=== PATIENT | male | born 1980 | race Caucasian/White ===

== ENCOUNTER 2024-06-19 06:16 | Observation (INO) ==
--- NOTE | 2024-05-21 09:31 | PAT Medication Instructions ---
Medication Instructions Date of Service May 21, 2024 Home Medications clonazepam 0.5 mg tablet 0.5 mg PO BID gabapentin 400 mg capsule 400 mg PO TID losartan 50 mg tablet 50 mg PO QPM metformin 1,000 mg tablet 1,000 mg PO BID rosuvastatin 20 mg tablet (Crestor) 20 mg PO QAM semaglutide 2 mg/dose (8 mg/3 mL) subcutaneous pen injector (Ozempic) 2 mg subcut WK sertraline 100 mg tablet (Zoloft) 200 mg PO QAM vitamin B12 1,000 mcg-folic acid 400 mcg sublingual tablet 1 tab sublingual QAM STOP 7 days before surgery semaglutide 2 mg/dose (8 mg/3 mL) subcutaneous pen injector (Ozempic) 2 mg subcut WK DO NOT take the morning of surgery metformin 1,000 mg tablet 1,000 mg PO BID vitamin B12 1,000 mcg-folic acid 400 mcg sublingual tablet 1 tab sublingual QAM Take morning of surgery With a small sip of water, OTHERWISE NOTHING TO EAT OR DRINK AFTER MIDNIGHT: clonazepam 0.5 mg tablet 0.5 mg PO BID gabapentin 400 mg capsule 400 mg PO TID rosuvastatin 20 mg tablet (Crestor) 20 mg PO QAM sertraline 100 mg tablet (Zoloft) 200 mg PO QAM Take evening before surgery clonazepam 0.5 mg tablet 0.5 mg PO BID gabapentin 400 mg capsule 400 mg PO TID losartan 50 mg tablet 50 mg PO QPM metformin 1,000 mg tablet 1,000 mg PO BID Other Notes If you have any questions please call us at [phone] or [phone] or [phone] or [phone]
--- NOTE | 2024-05-23 13:04 | Anesthesiology Consultation ---
Date of Service May 23, 2024 Assessment & Plan (1) Encounter for pre-operative examination: Chart Review Chart Review: Acceptable Risk for Surgery (pending surgeon ordered PCP clearance 05/31/24) and Patient seen in Pre Admission Testing - Awaiting PCP clearance 05/31/24 (EMMA Morgan) - Check BSG AM DOS - Ozempic instructions: Patient takes on (Wednesdays). Patient informed at PAT visit to stop 7 days prior to surgery- voiced understanding. Last dose of Ozempic scheduled 06/12/24- will be off Ozempic x 7 days by DOS on 06/19/24 Pt currently scheduled as 23 hours observation. If surgeon decides to change patient to Same Day Joint, patient would be acceptable risk for TKA, pending patient is motivated, has good support and surgeon's office completes [facility] preop requirements. Per PAT appt on 05/23/24, no recent illness/disease exposures, illness related symptoms, or recent illness/disease positive tests. Will leave to surgeon's discretion if preop Covid testing needed Teaching & Discussion Pre-Anesthesia Teaching/Discussion Notes: Instructed NPO after midnight before surgery,except medications with 15 cc of water. Medication instructions provided according to the PAT guidelines. History Surgery Operation Date: 06/19/24 09:00 Proposed Procedures p Left Total Knee Arthroplasty - George Muniz MD Height/Weight Height: 6 ft 8 in Weight: 140.1 kg Allergies Allergy/AdvReac Type Severity Reaction Status Date / Time pollen extracts Allergy Intermediate Itching/Watery Verified 05/16/24 15:09 eyes/Congestion lisinopril Allergy Unknown Family hx- Verified 05/23/24 13:32 see below Medications Home Medications Medication Instructions Recorded Confirmed Last Taken clonazepam 0.5 mg tablet 0.5 mg PO BID 05/16/24 05/16/24 Unknown gabapentin 400 mg capsule 400 mg PO TID 05/16/24 05/16/24 Unknown losartan 50 mg tablet 50 mg PO QPM 05/16/24 05/16/24 Unknown metformin 1,000 mg tablet 1,000 mg PO BID 05/16/24 05/16/24 Unknown rosuvastatin 20 mg tablet (Crestor) 20 mg PO QAM 05/16/24 05/16/24 Unknown semaglutide 2 mg/dose (8 mg/3 mL) 2 mg subcut WK 05/16/24 05/16/24 05/15/24 subcutaneous pen injector (Ozempic) sertraline 100 mg tablet (Zoloft) 200 mg PO QAM 05/16/24 05/16/24 Unknown vitamin B12 1,000 mcg-folic acid 1 tab sublingual QAM 05/16/24 05/16/24 Unknown 400 mcg sublingual tablet Past Medical History Medical History Adverse effect of anesthesia "Has happened once where I woke up very agitated and had to be held down." Bipolar 1 disorder follows psychiatry regularly Depression with anxiety follows psychiatry regularly Diverticular disease No flares x 5 years History of kidney stones 2019 - passed on own HTN (hypertension) stable as per patient Hx of gynecomastia PTSD (post-traumatic stress disorder) follows psychiatry regularly Sleep apnea CPAP Tourettes disorder Twitching/fidgeting - stable Type 2 diabetes mellitus Oral- stable Exercise / Class Metabolic Activity II 4-5 Yardwork/Stairs/Walk up hill (one flight of stairs - no chest pain or SOB ) Past Surgical History Surgical History History of arthroscopy of left knee x2 History of tonsillectomy and adenoidectomy with reduction of uvula Hx of bilateral breast reduction surgery Hx of colonoscopy Hx of cystoscopy Hx of esophagogastroduodenoscopy Hx of foot surgery Left Great Toe 2020 r/t diabetic wound - healed at this time and no current issues - follows with podiatry regularly Hx of sinus surgery Past Anesthesia History No Hx of Anesthesia Complications (with exception to remote hx of combativeness post op- no issues with subsequent issues ) and No Family Hx of Anesthesia Complications History of PONV No Hx of PONV and No Hx of Motion Sickness Social History Smoking Status: Never smoker Do You Dip or Chew Tobacco: No Hx Alcohol Use: No Hx Substance Use: No substance use type: does not use Review of Systems Patient denies chest pain, shortness of breath, dyspnea on exertion, reflux, cough, wheezing, palpitations. No hx of seizures, stroke, CO. No hx of blood clots or blood transfusions Physical Exam Vital Signs VITALS BP 116/76 P 79 TEMP 97.7 SP02 98% RESP 16 Constitutional no acute distress ENMT Mouth: no TMJ clicking Thyromental Distance: > or= 3.5 Finger Breadths (4.0) Mallampati Class: III (large tongue) Neck + short neck, + thick neck and + limited neck extension (significant ) Respiratory normal respiratory effort; no respiratory distress Auscultation: lungs clear to auscultation bilaterally; no wheezes Cardiovascular Rate/Rhythm: regular rate and regular rhythm Heart Sounds: no murmur Vessels: no carotid bruit Musculoskeletal Spine: + pain with cervical ROM Extremities: extremities normal to inspection Psychiatric Orientation: alert Lab Results Anesthesia Preop Results Results Anesthesia Widget: WBC 7.66 K/ul (4.8-10.8) 05/23/24 Hgb 14.3 g/dl (14.0-18.0) 05/23/24 Hct 43.4 % (42.0-52.0) 05/23/24 Plt 177 K/uL (130-400) 05/23/24 Na 138 mmol/L (136-145) 05/23/24 K 4.1 mmol/L (3.5-5.1) 05/23/24 Cl 102 mmol/L (98-107) 05/23/24 CO2 31 mmol/L (21-32) 05/23/24 BUN 23 mg/dl (6-23) 05/23/24 Creat 1.03 mg/dl (0.6-1.4) 05/23/24 Glucose Level 95 mg/dl (70-99(Fasting)) 05/23/24 PT 11.0 Seconds (9.0-12.0) 05/23/24 PTT 30 Seconds (21-31) 05/23/24 INR 1.0 (0.9-1.1) 05/23/24 HA1c 5.5 % (4.5-5.6) 05/23/24 Urine Color Yellow 05/23/24 Urine Appearance Clear (Clear) 05/23/24 Urine pH 5.5 (4.5-7.5) 05/23/24 Urine Specific [place] 1.016 (1.000-1.030) 05/23/24 Urine Protein 1+ (Negative) H 05/23/24 Urine Glucose (UA) Negative (Negative) 05/23/24 Urine Ketones Negative (Negative) 05/23/24 Urine Blood 1+ (Negative) H 05/23/24 Urine Nitrite Negative (Negative) 05/23/24 Urine Bilirubin Negative (Negative) 05/23/24 Urine Urobilinogen Negative (Negative) 05/23/24 Urine Leukocyte Esterase Negative (Negative) 05/23/24 Urine WBC (Auto) 0-5 /hpf (0-5) 05/23/24 Urine RBC (Auto) 0-2 /hpf (0-2) 05/23/24 Urine Hyaline Casts (Auto) 0-2 /lpf (0-2) 05/23/24 Urine Epithelial Cells (Auto) 0-2 /hpf (0-2) 05/23/24 Urine Bacteria (Auto) None Seen (None Seen) 05/23/24 Blood Type A Positive 05/23/24 Antibody Screen NEGATIVE 05/23/24 Testing Electrocardiogram Date: 05/13/24 Findings: + NSR @ (76bpm) Normal EKG per cardio Chest X-Ray Date: 05/23/24 FINDINGS: There is mild elevation of the right hemidiaphragm. Lungs are clear. There is no pneumothorax or pleural effusion. Cardiac size is normal. Mediastinal contours are normal. There is no evidence for pulmonary edema. IMPRESSION: No acute cardiopulmonary findings.
--- NOTE | 2024-06-19 05:55 | History & Physical Bridge Note ---
Date of Service June 19, 2024 History & Physical Bridge Note I have examined the patient, reviewed the History & Physical and in the interval since the performance of the History & Physical I have noted the following changes of clinical significance: no changes noted
[2024-06-19] MEDS ORDERED: BUPIVACAINE 0.5 % 5 MG/1 ML PF 10ML VIAL ONE (06:27)
[2024-06-19] MEDS ORDERED: ROPIVACAINE 0.5% 5 MG/ML 30 ML VIAL ONE (06:27)
--- NOTE | 2024-06-19 06:27 | History & Physical Bridge Note ---
Date of Service June 19, 2024 History & Physical Bridge Note I have examined the patient, reviewed the History & Physical and in the interval since the performance of the History & Physical I have noted the following changes of clinical significance:consent and site verified. no changes noted
[2024-06-19] MEDS ORDERED: ePHEDrine sulfate 50 MG/ML AMP ONE (07:33)
[2024-06-19] MEDS ORDERED: fentaNYL citrate PF 100 MCG/2 ML VIAL ONE ×2 (07:33→10:47)
[2024-06-19] MEDS ORDERED: LIDOCAINE 2% 2 ML VIAL/AMP(20MG/ML) INFIL ONE (07:33)
[2024-06-19] MEDS ORDERED: MIDAZOLAM HCL 1 MG/ML 2ML VIAL ONE (07:33)
[2024-06-19] MEDS ORDERED: ONDANSETRON INJ 2 MG/ML 2 ML VIAL ONE (07:33)
[2024-06-19] MEDS ORDERED: PROPOFOL IV EMULSION 10 MG/ML 20 ML VIAL IV ONE ×3 (07:33→10:07)
[2024-06-19] MEDS ORDERED: DEXAMETHASONE SOD INJ 4 MG/ML VIAL ONE (07:33)
[2024-06-19] MEDS ORDERED: PHENYLEPHRINE 100MCG/ML 5ML SYR ONE ×2 (07:33→11:10)
[2024-06-19] MEDS: SODIUM CHLORIDE 0.9% 1,000 ML IV SCH (07:45)
[2024-06-19] MEDS: TRANEXAMIC ACID 1,000 MG **IV Pre-op IV SCH (09:02)
[2024-06-19] MEDS: ceFAZolin 3000MG 3,000 MG/72.5 ML BAG IV SCH (09:20)
[2024-06-19] MEDS ORDERED: ATROPINE SULFATE 0.1 MG/ML 10ML SYR IV PRN (09:50)
[2024-06-19] MEDS ORDERED: ONDANSETRON INJ 2 MG/ML 2 ML VIAL IV PRN ×2 (09:50→14:21)
[2024-06-19] MEDS ORDERED: ePHEDrine sulfate 50 MG/ML AMP IV PRN (09:50)
[2024-06-19] MEDS: ROPIVACAINE 0.5% HCL/PF 246 MG, Ketorolac (*for OR use only*) 30 MG, EPINEPHrine 30MG/3... INFIL SCH (10:09)
[2024-06-19] MEDS: ORTHO JOINT ANESTHETIC ONE (10:09)
[2024-06-19] MEDS: TRANEXAMIC ACID 1,000 MG **IV Intra-op IV SCH (10:39)
--- NOTE | 2024-06-19 11:09 | Post Operative Brief Note ---
Immediate Post Op Note Date of Surgery June 19, 2024 Pre & Post Diagnosis Operation Date: 06/19/24 08:50 Pre-Op Diagnosis: Left Knee Degenerative Joint Disease Post-Op Diagnosis: Left Knee Degenerative Joint Disease I identified the patient and participated in the time-out.: Yes Procedure Operation Date: 06/19/24 08:50 Actual Procedures p Left cemented total Knee Arthroplasty(Left) - George Muniz MD Surgeon George Muniz MD Science Tutor Nathan/Yessica Estimated Blood Loss 50 Findings Consistent with Post-Op Diagnosis Severe patellofemoral and lateral compartment disease AVN of the condyle grossly valgus deformity Fluids See anesthesia report Complications None
--- NOTE | 2024-06-19 11:15 | Operative Report ---
Post Operative Report Pre & Post Diagnosis Operation Date: 06/19/24 08:50 Pre-Op Diagnosis: Left Knee Degenerative Joint Disease Post-Op Diagnosis: Left Knee Degenerative Joint Disease I identified the patient and participated in the time-out.: Yes Procedure Operation Date: 06/19/24 08:50 Actual Procedures p Left cemented total Knee Arthroplasty(Left) - George Muniz MD Surgeon George Muniz MD Director Financial Systems Nathan/Yessica Estimated Blood Loss 50 Findings Consistent with Post-Op Diagnosis Severe lateral and patellofemoral disease AVN segment of the distal lateral femoral condyle valgus valgus deformity a loculated separate posterior medial Ortega's cyst aspirated Fluids See anesthesia report Specimens Bone pathology Drains None Complications None Indications Severe pain failed conservative management x-rays with marked valgus disease and patellofemoral disease Description of Procedure After the patient was appropriate notified site verified consent verified antibiotics confirmed to be given the left lower extremity was prepped and draped in the usual routine fashion. Surgical timeout again was performed. Tourniquet was then inflated to 275 mmHg after exsanguination limb with a rubber band for total 65 minutes. Midline incision was utilized patient was quite thin careful flaps were raised parapatellar throughout any performed extensive synovitis was present this was excised. The patella was incarcerated it was released internally and then was able to be everted the knee was then flexed marginal osteophytes were excised around the whole femur and the intercondylar notch the medial side cartilage was relatively healthy lateral side was completely grade 4 with marked change in deformity patellofemoral joint was the same with marked degeneration. Distal femur was then resected 12 mm proximal tibia 4 mm the extension gap was excellent. Femur was sized to a size 9 cutting block applied the anterior posterior condylar and chamfer cuts were then made. This cut through the avascular segment which was intact with no significant loose pieces. Flexion gap was then checked it was excellent. The posterior capsule was then injected with Ortho mix the box cut was then made a size 9 fit well. The tibia was then subluxated and the size 10 tray fit well it was then pinned into place and appropriate broaching and reaming carried out. Trial reduction with a 8-10 was excellent 10 looks a little better with respect to midrange stability. The patella tracked well. Patella was then resected leaving roughly 20 mm of is quite thick. 41 spacer was then seated and tracked well. Ortho mix was then injected all about the knee. The trial elements were then removed the wound was irrigated with Pulsavac and soaked in Betadine for 2 minutes. Permanents were then cemented in position tibia femur patella in that order at 12 minutes the tourniquet was deflated minor bleeding points controlled electrocautery. He did receive an extra dose of TXA prior to that. At 14 minutes the spacer was removed the knee was flexed there was no cement that required removal everything looked excellent it was irrigated 1 final time with the Pulsavac Betadine and then the permanent liner seated the knee reduced and closed at 40 degrees of flexion with #2 Vicryl 2-0 Vicryl and standstill clips appropriate dressing applied the patient transferred recovery in satisfactory addition he tolerated the procedure well. Summary of implants size 9 left femur posterior cruciate substituting size 10 rotating tibial tray size 41 patella and 9 x 10 mm posterior cruciate substituting insert. Bone pathology pending. DVT PE PE prophylaxis start tomorrow. Family contacted. Mother. I attest to the content of the Intraoperative Record and any orders documented therein. Any exceptions are noted below.
--- NOTE | 2024-06-19 11:15 | Orthopedic Progress Note ---
Date of Service June 19, 2024 Orthopedic Progress Note Patient underwent left total knee replacement did well is no issues. Vital signs are stable he is afebrile denies chest pain shortness of breath fever chills nausea or headache. Family contacted. Assessment doing well post knee replacement x-ray pending. Continue care pathway.
--- NOTE | 2024-06-19 11:17 | Discharge Summary ---
Date of Service June 20, 2024 Admission HPI Per Admitting Provider Chronic left knee pain with x-rays revealing end-stage disease with valgus deformity Principal Diagnosis Osteoarthritis with valgus deformity left knee Discharge Data Allergies Allergy/AdvReac Type Severity Reaction Status Date / Time pollen extracts Allergy Intermediate Itching/Watery Verified 06/19/24 06:41 eyes/Congestion lisinopril Allergy Unknown Family hx- Verified 06/19/24 06:41 see below Vaccinations None Consultations None Procedures Performed Operation Date: 06/19/24 08:50 Actual Procedures p Left Total Knee Arthroplasty(Left) - George Muniz MD Ordered Studies 06/19/24 05:00 US - OR guided needle placemen Routine Hospital Course (1) Status post left knee replacement: Care pathway for total knee replacement Total Time Total Time Spent Total Time Spent (In Minutes): 5 minutes Discharge Plan Discharge Items Patient Disposition: Home - Home Health Services Reason For Visit: Osteoarthritis Knee Left Discharge Diagnosis: Status post left total knee replacement cemented Activity: Per Instructions section Weightbearing: Left weightbearing Non-emergency contact: Surgeon Call non-emergency contact if: you have any medication questions, your symptoms worsen, your pain is not controlled, your temperature is above 101, your wound has increased redness and your wound has increased drainage Follow-up/Referrals: Eric Marion PA-C [Physician Manager Dialysis] - 07/04/24 4:00 pm Mago Valladares DO [Primary Care Provider] - Diet: Regular and Carb Count or DM1 Addtl Attending Provider Instructions: New Medicine: * You will likely be taking one or more of these medications: 1. Percocet - Take, as directed, when you need it, every four to six hours to control your pain. 2. Iron Sulfate - Take 1x each day for the month after surgery to help you replace the blood lost during surgery. 3. Eliquis - Thins your blood to lessen the chance of forming a blood clot * The most common side effects of pain medicine and iron are nausea and constipation. If nausea or constipation is too much of a problem or if you have any questions about your new medicines or doses, call [facility] at . We will try to help you manage these issues. "VERY IMPORTANT TO READ AND REVIEW" Blood Clots and Blood Thinning Medicine: * You are given Eliquis during the immediate post-operative period to lessen the risk of blood clots forming in your legs and/or lungs. It is usually given for 4 weeks after surgery. Pain: * The immediate post-operative period after knee replacement surgery is often quite painful. * You are given a prescription for pain medicine. You should take it, as directed, when you need it, especially before physical therapy and before going to bed. Pain that interferes with sleep is very common and can last several months. * You will likely need pain medicine for the first four to six weeks. It will not stop all of the pain. The pain will lessen and as you feel better, you may change to milder pain medicine such as Tylenol. * The most common side effects of pain medicine are nausea and constipation, so don't take more than you need. Physical Therapy: * You will have physical therapy two or three times each week for four to six weeks after your surgery in order to regain your knee range of motion and to retrain your knee to work properly. * It is just as important to make sure you are getting your knee perfectly straight as it is to regain your knee bend. * Taking a pain pill an hour before therapy can help you have a more productive and comfortable therapy session if needed. Home Exercise: * You were shown a series of exercises (heel props, heel slides, etc.) in the hospital. Do these exercises three to four times each day including the exercises you were shown in physical therapy. Walking: * Get up and walk several times each day. For the first four weeks, try not to stand or walk for more than one hour at a time. If you do stand or walk for more than one hour, you will not hurt anything, but your knee and leg will likely swell. * As you feel comfortable, you may change from the walker or crutches to a cane and then to independent walking. SELF CARE INSTRUCTIONS AFTER TOTAL KNEE REPLACEMENT A. You may need to continue a physical therapy program after discharge from the hospital. There are several options available to you. Your doctor will assist you in selecting the best one for you. 1. An out-patient facility 2 to 3 times a week for therapy or home therapy. 2. Continue working on all exercises taught to you in the hospital. Your goals should be to increase bending of your knee to 90 degrees and beyond and to fully straighten your knee. B. You may progress at your own pace from walking with a walker or crutches to a cane; then to no assistive devices. C. Make walking a part of your daily routine. Be up as much as comfortable with rest periods throughout the day. Rest with leg elevation is very import ant. Use the ice wrap frequently for the first 3-4 weeks. D. There are no restrictions on activities. You may ride in a car, shop, participate in tool maintenance worker and all social activities. E. Wear the long elastic stockings (TONY hose) 20 hours a day for six weeks after surgery. They can be removed several times a day for laundering and for a shower. F. Do not place a pillow behind your knee when resting. A pillow at your ankle is okay. G. You may return to previous diet. VERY IMPORTANT TO READ AND REVIEW A. Take Eliquis (blood thinning medication) as directed by your doctor. B. There are a few signs you need to watch for after you are home. Call [facility] if you notice any of the followin. Increased severe knee pain. Some pain is expected especially when you exercise. 2. Increased swelling in your leg or knee; pain or swelling of the calf muscle in either lower leg. 3. Any fluid drainage from the incision. 4. Shortness of breath or chest pain. C. Please call [facility] at if you have any concerns or questions about your operation or recovery. The doctor or his nurse will return your call promptly. D. You must take antibiotics before dental work, bladder, bowel or other surgery. Call the office to obtain a prescription at least 2 days prior to your appointment. * CALL IF INCREASED PAIN, REDNESS, DRAINAGE OR FEVER GREATER THAT 101. * Sutures should be removed 12-14 days after surgery unless you are on chronic steroids, then it will be 14-18 days after surgery. Call your doctor if: * Temperature above 101 degrees F. * Pain not relieved by pain medicine ordered. * Increased drainage or redness from incision. * Notify your doctor with any questions or concerns. MEDICATIONS: * Please take your prescriptions as instructed at your pre-op appointment and/or see medication discharge instructions listed above. * If concerns develop, call your physician's office at . SPECIAL CARE INSTRUCTIONS: * Ice/Elevate as instructed. * Keep dressing clean, dry, intact. * Your surgical extremity may be discolored due to prepping agents used on the skin. A bluish-green tint is a normal variant and should not cause alarm. Call your doctor at [phone] if: * Temperature above 101 degrees * Pain not relieved by pain medicine ordered * There is increased drainage or redness from any incision * You have any unanswered questions, problems or concerns. FOLLOW UP VISIT: * If not already scheduled, please call the office at to schedule a follow-up appointment. Use your knee immobilizer when out of bed and Monday. It can be discontinued entirely on Monday morning. Use your walker for ambulation Start your Eliquis evening with dinner. Take it 2x day x 4 weeks to prevent blood clots Leave the leg dressings in place through the weekend. They can be changed on Monday if needed for soiling Call the offce with any other concerns follow up in the office in 2 weeks as scheduled for staple removal Stand-Alone Forms: My [facility], Smoking Cessation Medications and DC Order Prescriptions: No Action losartan 50 mg Tablet 50 mg PO QPM clonazepam 0.5 mg Tablet 0.5 mg PO BID gabapentin 400 mg Capsule 400 mg PO TID sertraline [Zoloft] 100 mg Tablet 200 mg PO QAM metformin 1,000 mg Tablet 1,000 mg PO BID rosuvastatin [Crestor] 20 mg Tablet 20 mg PO QAM vitamin [id number] acid 1,000-400 mcg Tablet, Sublingual 1 tab SUBLINGUAL QAM Ozempic 2 mg/dose (8 mg/3 mL) Pen Injector 2 mg SUBCUT WK Rx Instructions: Wednesdays Admission Data Admit Date/Time: 06/19/24 11:27 Attending Provider: George Muniz Admit Provider: George Muniz Primary Care Provider: Mago Valladares
[2024-06-19] MEDS ORDERED: VANCOMYCIN CONSULT ACTIVE PRN (11:18)
--- NOTE | 2024-06-19 11:22 | Operative Report ---
Post Operative Report Pre & Post Diagnosis Operation Date: 06/19/24 08:50 Pre-Op Diagnosis: Left Knee Degenerative Joint Disease Post-Op Diagnosis: Left Knee Degenerative Joint Disease I identified the patient and participated in the time-out.: Yes Procedure Operation Date: 06/19/24 08:50 Actual Procedures p Left Total Knee Arthroplasty(Left) - George Muniz MD Surgeon George Muniz MD Generation Technician Nathan/Cindi Estimated Blood Loss 50 Findings Consistent with Post-Op Diagnosis Specimens Bone pathology Description of Procedure He patient was brought to the operative suite after undergoing spinal anesthesia preoperatively. He underwent sedation. Left lower extremity was prepped and draped in the usual sterile fashion. A surgical timeout was performed. The patient underwent a left total knee arthroplasty, please see Dr. Muniz's operative report for full details. I was present and assisted with patient positioning, limb positioning, soft tissue retraction, hemostasis, bony resection, hardware placement,, wound closure, and postoperative dressing placement. The patient was awakened and taken to the recovery room in stable condition I attest to the content of the Intraoperative Record and any orders documented therein. Any exceptions are noted below.
[2024-06-19] MEDS: fentaNYL citrate PF 100 MCG/2 ML VIAL IV PRN (11:26)
--- NOTE | 2024-06-19 11:36 | XRay Report ---
XR knee LT 1 or 2V routine CLINICAL HISTORY: S/P L TKA TECHNIQUE: 2 views of the left knee were obtained. Comparison: None available at the time of this dictation. FINDINGS: Patient is status post total knee arthroplasty with expected postsurgical changes including soft tiss ue swelling and subcutaneous emphysema. No periarticular lucency or hardware fracture is seen. IMPRESSION: Expected postoperative appearance status post placement of total knee arthroplasty. ACT 112: Negative or not required by law. Electronically signed by: Jamie Fernández M.D. 06/19/2024 11:35 AM
[2024-06-19] MEDS: VANCOMYCIN HCL 2,750 MG in SODIUM CHLORIDE 0.9% 500 ML IV ONE (11:39)
--- NOTE | 2024-06-19 11:53 | Orthopedic Progress Note ---
Date of Service June 19, 2024 Orthopedic Progress Note Postop check in PACU. Patient is awake and alert. Denies chest pain shortness of breath fever chills nausea vomiting or headache. Vital signs are stable he is afebrile. Neurovascular check reveals active dorsi and plantarflexion of toes and ankle in version eversion intact. Can do a straight leg raise good quad set. Sensory exam is baseline. Postop x-rays look excellent. Assessment doing well status post left total knee replacement continue care pathway discharge tomorrow after PT OT. Initiate anticoagulation tomorrow.
[2024-06-19] MEDS ORDERED: oxyCODONE HCL IR 5 MG TAB (IMMEDIATE RELEASE) PO PRN (14:21)
[2024-06-19] MEDS ORDERED: HYDROmorphone INJ 1 MG/ML SYRINGE IV PRN (14:21)
[2024-06-19] MEDS ORDERED: NALOXONE HCL 0.4 MG/1 ML VIAL/CARP IV PRN (14:21)
[2024-06-19] MEDS ORDERED: PHARMACY GLYCEMIC MGMT CONSULT PRN (14:21)
[2024-06-19] MEDS ORDERED: MAGNESIUM HYDROXIDE SUSP 30 ML UDC PO PRN (14:21)
[2024-06-19] MEDS ORDERED: HYDROmorphone INJ 0.5 MG/0.5 ML SYR IV PRN (14:21)
[2024-06-19] MEDS ORDERED: diphenhydrAMINE 50 MG/ML VIAL IV PRN (14:21)
[2024-06-19] MEDS ORDERED: bisacodyL 10 MG SUPP PR PRN (14:21)
[2024-06-19] MEDS ORDERED: TAMSULOSIN HCL 0.4 MG CAP PO PRN (14:21)
[2024-06-19] MEDS: LR 500ML BOLUS, THEN 15ML/HR IV SCH (14:29)
[2024-06-19] MEDS: LR 60ML/HR IV SCH (14:30)
[2024-06-19] MEDS ORDERED: CARBOHYDRATES FOR HYPOGLYCEMIA PO PRN (15:30)
[2024-06-19] MEDS ORDERED: GLUCOSE 10 TAB/TUBE PO PRN (15:30)
[2024-06-19] MEDS ORDERED: GLUCOSE 40% GEL 15 GM TUBE PO PRN (15:30)
[2024-06-19] MEDS ORDERED: DEXTROSE 50% 50 ML SYRINGE IV PRN (15:30)
[2024-06-19] MEDS ORDERED: GLUCAGON FOR INJ 1 MG VIAL SQ PRN (15:30)
--- NOTE | 2024-06-19 15:39 | Anesthesiology Progress Note ---
Date of Service June 19, 2024 Anesthesia Post Procedure Vital Signs Vital Signs: Temp Pulse Pulse Resp BP Pulse Ox O2 Del Method 06/19/24 15:15 36.6 C 85 18 139/82 98 Room Air 06/19/24 14:45 36.7 C 86 18 120/73 96 Room Air 06/19/24 14:20 36.6 C 84 18 132/80 96 Room Air 06/19/24 13:30 80 19 125/86 97 Nasal Cannula 06/19/24 13:00 36.1 C L 77 19 132/80 94 Nasal Cannula 06/19/24 12:45 74 16 121/74 94 Nasal Cannula 06/19/24 12:30 80 18 120/72 94 Nasal Cannula 06/19/24 12:15 80 14 121/78 92 Nasal Cannula 06/19/24 12:00 79 14 112/74 92 Room Air 06/19/24 11:55 36.4 C L 75 13 121/74 92 Room Air 06/19/24 11:45 76 17 116/73 95 Oxymask 06/19/24 11:35 75 15 120/67 99 Oxymask 06/19/24 11:25 77 17 116/72 99 Oxymask 06/19/24 11:19 36.5 C 78 15 115/67 99 Oxymask 06/19/24 06:44 36.6 C 75 20 140/93 99 Room Air O2 Flow Rate 06/19/24 15:15 06/19/24 14:45 06/19/24 14:20 06/19/24 13:30 2 06/19/24 13:00 2 06/19/24 12:45 2 06/19/24 12:30 2 06/19/24 12:15 2 06/19/24 12:00 06/19/24 11:55 06/19/24 11:45 3 06/19/24 11:35 7 06/19/24 11:25 7 06/19/24 11:19 7 06/19/24 06:44 Pain Intensity Left Knee: Pain Intensity: 3 Transfer of Care Handoff Completed per policy Notes Mental Status: alert / awake / arousable and participated in evaluation Patient Amnestic to Procedure: Yes Nausea / Vomiting: adequately controlled Pain: adequately controlled Airway Patency, RR, SpO2: stable & adequate BP & HR: stable & adequate Hydration State: stable & adequate Neuraxial Anesthesia: was administered and sensory block is resolving Anesthetic Complications: no major complications apparent and Pt Satisfied with anesthetic care
[2024-06-19] MEDS ORDERED: Nursing to Pharmacy Communication SCH (16:15)
[2024-06-19] MEDS: ACETAMINOPHEN 500 MG TAB PO SCH (16:18)
[2024-06-19] MEDS: KETOROLAC 30 MG/ML VIAL IV SCH (16:18)
[2024-06-19] MEDS: GABAPENTIN 400 MG CAP PO SCH (16:19)
[2024-06-19] MEDS: ceFAZolin 2000MG 2,000 MG/15 ML SYR IV SCH (16:19)
[2024-06-19] MEDS: INSULIN ASPART PER UNIT CHARGE SC SCH (17:21)
--- NOTE | 2024-06-19 19:23 | Pharmacy Report ---
Pharmacy Glycemic Short Note 2 - Date of Service June 19, 2024 - Glycemic Short BSG Results (Last 24 hours): 06/19/24 06/19/24 06/19/24 06:42 11:29 16:35 POC Glucose 98 103 H 124 H OUTPATIENT ANTIDIABETIC REGIMEN: * Metformin 1000mg bid * Ozempic 2mg wk ASSESSMENT: 43 -years - old was admitted after a surgery ( Left Total Knee Arthroplasty) PLAN FOR INPATIENT GLYCEMIC CONTROL: * Hold outpatient oral diabetes medications * Basal insulin * hold * Bolus insulin * NovoLog per scale ACHS or Q6hrs while NPO * Goal Range: Low 110 mg/dL - High 140 mg/dL * Correction Factor: 30 mg/dL/unit * Nutritional / Prandial insulin per carb ratio of 1 unit per 10 grams CHO consumed
[2024-06-19] MEDS: LOSARTAN POTASSIUM 50 MG TAB PO SCH (20:36)
[2024-06-19] MEDS: clonazePAM 0.5 MG TAB PO SCH (20:37)
[2024-06-19] MEDS: SENNA 8.6 MG TAB PO SCH (20:37)
[2024-06-19] MEDS: DOCUSATE SODIUM 100 MG CAP PO SCH (20:37)
[2024-06-20 03:23] VITALS: TEMP 97.7
[2024-06-20 04:09] LABS: Hematocrit (blood only) 36.7 % (42.0-52.0); Mean Corpuscular Hemoglobin 26.5 pg (25.0-34.0); Mean Corpuscular Hgb Conc 32.7 g/dL (32.0-36.0); Mean Platelet Volume 10.5 fL (9.4-12.4); Platelet Count 164 K/uL (130-400); RDW Standard Deviation 41.1 fL (36.4-46.3); Red Blood Count 4.53 M/uL (4.70-6.10); White Blood Count 12.79 K/ul (4.8-10.8)
[2024-06-20 04:27] LABS: BUN Creatinine Ratio 22.2 (10-20); Calcium 8.7 mg/dl (8.6-10.3); Creatinine Clr Calc Pharmacy 111.7 ml/min
--- NOTE | 2024-06-20 06:52 | Orthopedic Progress Note ---
Date of Service June 20, 2024 Assessment & Plan Admission and Anticipated Discharge Date Admission Date: June 19, 2024 Orthopedic Progress Note Postop day #1 status post left total knee replacement. Patient is very comfortable doing well. He denies any chest pain shortness of breath fever chills nausea vomiting or headache. Vital signs are stable he is afebrile. Neurovascular check from sciatic nerve is normal. Can do straight leg raise and ankle pumps. Calves nontender. A.m. labs are excellent. Assessment doing well status post left total knee replacement. Will plan is to discharge this morning after PT. Dressing change. Initiate anticoagulation today. Follow-up in 2 weeks.
[2024-06-20 07:03] VITALS: BP 114/66; PULSE 80; RESP 16; O2SAT 97
[2024-06-20] MEDS: SERTRALINE HCL 100 MG TABLET PO SCH (08:14)
[2024-06-20] MEDS: MULTIVITAMIN TAB PO SCH (08:14)
[2024-06-20] MEDS: ROSUVASTATIN CALCIUM 20 MG TAB PO SCH (08:14)
[2024-06-20] MEDS: APIXABAN 2.5 MG TAB PO SCH (08:15)
[2024-06-20] MEDS: CYANOCOBALAMIN (B-12) 500 MCG TABLET PO SCH (08:15)
[2024-06-20] MEDS: dexAMETHasone 4 MG TAB PO SCH (08:15)
[2024-06-20] MEDS: FOLIC ACID 400 MCG TAB PO SCH (08:15)
[2024-06-20] MEDS ORDERED: CeleBREX 200 MG CAP PO SCH ×2 (09:00→21:00)
[2024-06-20] MEDS ORDERED: FOLIC ACID 400 MCG TAB PO SCH (09:00)
--- OUTSIDE RECORDS SUMMARY | 2024-06-20 15:06 | External Medical Summary | Summary of Care ---
Author Name Unknown Organization [facility] Address [address] [place] [address] Phone [phone] Care Team Providers Care Customer Service Assistant Name Role Phone Mago Valladares DO Primary Care Provider Reason for Visit * Reason Comments Routine Exam Routine appointment: - Needs new prescription for diabetic shoes. Ran out of Losartan Potassium 2 weeks ago (new order pended) pre-op exam Knee surgery 024. Encounter Details Date Type Department Care Team (Late st Contact Info) Description 05/31/2024 12:00 PM EST Office Visit [facility] [address] [facility] Entrance B, 2nd Floor, [address] [place] [address] Mago Valladares DO [address] [place] [address] Preoperative general physical examination*; Diabetic ulcer of left great toe (HCC); Type 2 diabetes mellitus with hemoglobin A1c goal of less than 7.0% ([facility]); ROME (obstructive sleep apnea); Dyslipidemia, goal LDL below 100; Type 2 diabetes mellitus with foot ulcer, without long-term current use of insulin ([facility]); ROME on CPAP; Malaise and fatigue; Other specified diabetes mellitus with other skin ulcer (CODE) ([facility]); Other fpc (current) drug therapy; Vitamin D deficiency, unspecified Allergies Active Allergy Reactions Criticality Noted Date Comments Dust 03/06/2023 Dust Mite Extract 03/17/2016 Lisinopril 02/12/2019 Angioedema in the father Pollen 08/18/2015 documented as of this encounter (statuses as of 06/11/2024) Medications ZOLOFT 100 MG PO TABS Take by mouth. 2 pills in morning Active FREESTYLE LANCETS MISC TEST twice a day 0 07/29/19 15 Active clonazePAM 0.5 MG Oral Tablet (KlonoPIN) Take 1 Tablet by mouth 2 times a day as needed for Anxiety. Active Triamcinolone Acetonide 0.5 % External Cream Apply topically to affected area 3 times a day . Apply to Active Cyclobenzaprine HCl 10 MG Oral Tablet (Flexeril) Take 1 Tablet by mouth in the morning and 1 Tablet at noon and 1 Tablet before bedtime. Active Abilify 5 MG Oral Tablet Take 1 Tablet by mouth in the morning. Active Diclofenac Sodium 1 % External Gel (Voltaren)Indicati ons:Acute bilateral low back pain without sciatica Apply topically to affected area 2 times a day. Apply 1g to affected area 50 g 3 10/04/19 23 Active FreeStyle Test In Vitro Strip (Glucose Blood)Indications: Type 2 diabetes mellitus with hemoglobin A1c goal of less than 7.0% (HCC) To check blood sugar twice daily DX11.9 180 Strip 3 11/03/19 23 Active Dakins (1/2 strength) 0.25 % External Solution Apply topically to affected area. Apply to affected area once daily Active Insulin Aspart 100 UNIT/ML Subcutaneous Solution Pen-injector (novoLOG)Indicatio ns:Type 2 diabetes mellitus with foot ulcer, without long-term current use of insulin (HCC) Use insulin according to sliding scale 2 units if bs 150-200, 4 units if 201-250, 6 units 251-300, 8 units 301-350, 10 units 351-400, maximum daily dosing of 30 units 1 Each 5 07/07/20 23 Active metFORMIN HCl 1000 MG Oral Tablet (Glucophage)Indica tions:Type 2 diabetes mellitus with hemoglobin A1c goal of less than 7.0% (HCC) Take by mouth 2 times a day with morning and evening meals. One tab twice daily 180 Tablet 2 07/29/19 24 Active B-12-SL 1000 MCG Sublingual Tablet Sublingual (Cyanocobalamin)In dications:Type 2 diabetes mellitus with hemoglobin A1c goal of less than 7.0% (HCC) Place 1,000 mcg under the tongue in the morning. 90 Tablet 3 11/24/19 24 Active Rosuvastatin Calcium 20 MG Oral Tablet (Crestor)Indicatio ns:Dyslipidemia, goal LDL below 100 Take 1 Tablet by mouth in the morning. 90 Tablet 3 11/24/19 24 Active Gabapentin 400 MG Oral Capsule (Neurontin)Indicat ions:Type 2 diabetes mellitus with hemoglobin A1c goal of less than 7.0% (HCC),Primary osteoarthritis of left knee Take 1 Capsule by mouth in the morning and 1 Capsule at noon and 1 Capsule before bedtime. 270 Capsule 1 11/24/19 24 Active Azelastine HCl 0.1 % Nasal Solution (Astelin)Indicatio ns:Chronic rhinitis Administer 1 [place] into nostril in the morning and 1 [place] before bedtime. 30 mL 8 12/05/19 24 Active Ozempic (2 MG/DOSE) 8 MG/3ML Subcutaneous Solution Pen-injector (Semaglutide (2 MG/DOSE))Indicatio ns:Type 2 diabetes mellitus with hemoglobin A1c goal of less than 7.0% (HCC) INJECT 2 MG UNDER THE SKIN ONCE WEEKLY 9 mL 1 03/04/20 24 Active Losartan Potassium 50 MG Oral Tablet (Cozaar)Indication s:Type 2 diabetes mellitus with foot ulcer, without long-term current use of insulin (HCC) Take 1 Tablet by mouth at bedtime. 90 Tablet 3 05/31/20 24 Active Losartan Potassium 50 MG Oral Tablet (Cozaar)Indication s:Type 2 diabetes mellitus with foot ulcer, without long-term current use of insulin (HCC) TAKE 1 TABLET BY MOUTH AT BEDTIME 90 Tablet 3 03/02/20 23 024 Discontin ued(Refil l) documented as of this encounter (statuses as of 06/11/2024) Active Problems Problem Noted Date Diagnosed Date ROME on CPAP 05/31/2024 Osteoarthritis of left knee 02/26/2024 History of atrial fibrillation 11/24/2023 Dyslipidemia, goal LDL below 100 11/24/2023 Type 2 diabetes mellitus wit h foot ulcer, without long-term current use of insulin 11/24/2023 Primary osteoarthritis of left knee 11/24/2023 HTN, goal below 140/90 08/05/2022 Recurrent major depressive disorder 07/26/2022 Viral upper respiratory tract infection 06/08/20 22 ROME (obstructive sleep apnea) 02/22/2022 Diabetic ulcer of right great toe 12/13/2021 Diabetic ulcer of left great toe 11/26/2020 Type 2 diabetes mellitus wit h hemoglobin A1c goal of less than 7.0% 11/26/2020 DM type 2 with diabetic peripheral neuropathy DDD (degenerative disc disease), lumbar 09/05/19 17 Disorder of refraction and accommodation 015 Anxiety state 07/22/2008 Internal derangement of knee 04/11/2007 documented as of this encounter (statuses as of 06/11/2024) Resolved Problems Problem Noted Date Diagnosed Date Resolved Date ADVANCE DIRECTIVE INFORMATION 09/17/2008 05/13/2024 Overview (09/17/2008): Discussed and gave AD brochure. Pt believes that he completed a POA for healthcare in the past (ask his parents) which he may bring to scan to record. RON Gastelum. Major depressive disorder 07/22/2008 Overview (05/02/2017): ICD-10 update of inactive term Examination following surgery 06/14/2007 11/24/2023 documented as of this encounter (statuses as of 06/11/2024) Immunizations Name Administration Dates Next Due COVID-19 mRNA, LNP-s, No Pre serve, 2-Dose Series (Moderna) 09/04/2020,08/07/2020 COVID-19 mRNA, LNP-s, No Pre serve, 2-Dose Series (Pfizer) 03/22/2023 COVID-19, mRNA, LNP-s, PF, B ooster, 100mcg/0.5mg (Moderna) 05/12/2021 Covid-19, Mrna, Lnp-s, Pf, B ivalent, 30 Mcg, IM, 12 yrs and above (Pfizer) 05/02/2022 Hepatitis B Vaccine 06/28/2000,01/26/2000,1999 Hepatitis B, 20+ yrs 06/28/2000,01/26/20,12/28/1999,10/08,04/28/1997,03/18/1997 Meningococcal MCV4P Conjugat e Vaccine (Menactra) 02/09/2000 Meningococcal Polysaccharide Vaccine (Menommune) 02/09/2000 Pneumococcal Conjugate Vacci ne, 20-valent ([id number]) 05/03/2022 Pneumococcal Polysaccharide PPV23 (Pneumovax) 12/12/2018,05/16/2016 Seasonal Influenza Vac., MDV , IM, 0.5 mL (Fluzone) 04/24/2019,04/04/2018,04/03/2018,03/28,03/11/2015,03/05/2014,05/22/2013 ,06/28/2011 Seasonal Influenza Virus Vac cine, Unspecified Formulation 04/19/2023 Seasonal Influenza, QUAD, wi th Preserv, 6 mons & Above, 0.5 mL, IM 05/02/2022 Seasonal Influenza, Quadriva lent, No Preserve, IM 03/30/2020 TDAP (age 10 and older)(Boostrix) 05/16/2016,06/2007 documented as of this encounter Social History Tobacco Use Types Packs/Day Years Used Date Smoking Tobacco: Never Smokeless Tobacco: Never Alcohol Use Standard Drinks/Week Comments No 0 (1 standard drink = 0.6 oz pur e alcohol) PHQ-2 Answer Date Recorded PHQ Adult Total Score 2 05/31/2024 Hunger Vital Sign Answer Date Recorded Within the past 12 months, y ou worried that your food would run out before you got the money to buy more. Never true 05/17/20 24 Within the past 12 months, t he food you bought just didn't last and you didn't have money to get more. Never true 05/17/2024 Childcare Answer Date Recorded Do you feel overwhelmed with taking care of a child, family member or friend? No 05/17/2024 Does your family need help f inding childcare? (Household - for ages 0-17 years) Not on file 05/17/2024 Clothing Answer Date Recorded Have you been unable to get clothing when it was really needed? No 05/17/2024 Is your family able to get c lothes or diapers when needed? (Household - for ages 0-17 years) Not on file 05/17/2024 Personal Safety Answer Date Recorded Do you feel unsafe or have concerns for your saf ety? No 05/17/2024 Do you have concerns for you r family's safety? (Household - for ages 0-17 years) Not on file 05/17/2024 Utilities Answer Date Recorded Do you have trouble paying y our heating, water, or electric bill? No 05/17/2024 Is your family able to pay t he heat, water, or electric bill? (Household - for ages 0-17 years) Not on file 05/17/2024 Does your family have access to good internet? (Household - for ages 0-17 years) Not on file 05/17/2024 Employment Status Answer Date Recorded Are you unemployed or without regular income? No 05/17/2024 Does the household have a [facility] source of income? (Household - for ages 0-17 years) Not on file 05/17/2024 Social Connections Answer Date Recorded How often do you feel lonely or isolated from th ose around you? Rarely 05/17/2024 Financial Resource Strain Answer Date R ecorded Do you have any trouble payi ng for your medications, or do you think you might in the future? No 05/17/2024 Does your family have troubl e paying for medicine? (Household - for ages 0-17 years) Not on file 05/17/2024 Transportation Needs Answer Date Record ed READ ONLY Do you have troubl e getting a ride to medical visits or work? Never True 05/17/2024 Does your family have a hard time getting a ride to doctors visits? (Household - for ages 0-17 years) Not on file 05/17/2024 Has lack of transportation k ept you from medical appointments, meetings, work, or from getting things needed for daily living? Check all that apply. No 05/17/2024 Do you (or your family) have trouble finding or paying for a ride (transportation)? (Household - for ages 0-17 years) Not on file 05/17/2024 Housing Stability Answer Date Recorded Do you currently live in a s helter or have no steady place to sleep at night? No 05/17/2024 READ ONLY Do you think you a re at risk of becoming homeless? No 05/17/2024 Does your family worry about paying for your home or becoming homeless? (Household - for ages 0-17 years) Not on file 1 07/17/2023 Are you homeless or worried that you might be in the future? No 05/17/2024 Are you (or your family) cristiano eless or worried that you might be in the future? (Household - for ages 0-17 years) Not on file Food Insecurity Answer Date Recorded Do you need food for this week? No 05/17/2024 Are you able to get enough f ood for your family? (Household - for ages 0-17 years) Not on file 05/17/2024 Does your family need food t his week? (Household - for ages 0-17 years) Not on file 05/17/2024 Do you always have enough fo od for your family? 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 Not on file Not on file Not on file documented as of this encounter Last Filed Vital Signs Vital Sign Reading Time Taken Comments Blood Pressure 122/80 05/31/2024 11:28 AM EST Pulse 91 05/31/2024 11:28 AM EST Temperature 36.9 C (98.4 F) 05/31/2024 1 1:28 AM EST Respiratory Rate 18 05/31/2024 11:2 8 AM EST Oxygen Saturation 97% 05/31/2024 11: 28 AM EST Inhaled Oxygen Concentration - - Weight 141.6 kg (312 lb 3.2 oz) 024 11:28 AM EST Height 196.9 cm (6' 5.5") 05/31/2024 11 :28 AM EST Body Mass Index 36.55 05/31/2024 11:28 AM EST documented in this encounter Patient Instructions * Patient Instructions* Mago Valladares, DO - 05/31/2024 11:36 AM EST You are low risk for a low risk procedure Okay to proceed as scheduled Please hold Ozempic for 1 week prior to procedure Please hold metformin on morning of procedure Please hold losartan on morning of procedure Hold any [id number] supplements for 10 days prior to procedure Do not take any pjei-jyl-dphuwtt NSAIDs for 7 days prior to procedure Return in 6 months or sooner if needed Dr. Ramirez For fatigue please get blood work Talk to sleep medicine team about narcolepsy or other sleep disorders as well documented in this encounter Progress Notes * Paola Martinez OSA - 06/11/2024 9:34 AM EST Office note and form faxed as requested. * Mago Valladares DO - 05/31/2024 12:00 PM EST Images from the original note were not included. History of Present Illness Geoffrey Haywood is a 43-year-old person who presents today for follow up of chronic medical conditions. Their past medical history includes the following: Today would like to discuss ongoing malaise and fatigue For the past few months has had excessive daytime sleepiness Finds himself falling asleep randomly throughout the day Discussed with Sleep Medicine center at [facility] whom he follows with an they report his CPAP was at a good pressure and oxygenation look good Was not tested for any other parasomnia as her sleeping disorders Denies any fevers chills unintentional weight loss No other new symptoms aside from fatigue No new medications Type 2 diabetes complicated by peripheral neuropathy and diabetic ulcer Maintained on Ozempic 2 mg weekly, metformin, short-acting insulin if needed Last A1c 5.9% well-controlled Maintained on losartan for renal protection Maintained on high-intensity statin History of left foot ulcer for which they are following with Podiatry at [facility] Has required multiple debridements Wearing good orthotics shoes - needs new pair for which paperwork was completed today Will not take Gerry as dad had allergy and he was told by previous doctors to "never take lisinopril" He is tolerating losartan Obesity Weight previously 345 lb He was down over 40 lb and doing well MDD/kathy Maintained on Zoloft, Abilify. Following with psychiatry at [facility] Ava Young ROME Wearing CPAP nightly Acne Following with Dermatology - [facility] Dilia Maintained on isotretinoin May be able to discontinue in the near future Per Care Everywhere there is documentation of patient has a history of AFib with ablation and DC cardioversion in the past Patient denies this Recommended we obtain echocardiogram given risk factors in the past but they have not completed Plan is for left knee replacement with [facility] Dr. Muniz on 06/19/2024. Having ongoing pain in left knee. He does have good metabolic equivalents. No chest pain or shortness of breath. He denies any history of heart attack or heart disease. No history of heart failure. He denies any history of cerebrovascular disease. He does not have any history of chronic kidney disease. He does have diabetes but she was not take any insulin. Has sleep apnea and wears a CPAP. Denies any history of surgical complications. No history of blood clot or uncontrolled bleeding. Does report history of agitation after waking from anesthetic 1 time as a young adult. Physical Exam BP 122/80 | Pulse 91 | Temp 98.4 F (36.9 C) (Infrared ) | Resp 18 | Ht 6' 5.5" (1.969 m) | Wt (!) 312 lb 3.2 oz (141.6 kg) | SpO2 97% | BMI 36.55 kg/m | BSA 2.78 m Physical Exam Physical Exam Vitals reviewed. Constitutional: General: Geoffrey is not in acute distress. Appearance: Geoffrey is obese. Geoffrey is not toxic-appearing. HENT: Head: Normocephalic and atraumatic. Right Ear: External ear normal. Left Ear: External ear normal. Nose: Nose normal. Mouth/Throat: Mouth: Mucous membranes are moist. Eyes: Extraocular Movements: Extraocular movements intact. Conjunctiva/sclera: Conjunctivae normal. Comments: Wears glasses Cardiovascular: Rate and Rhythm: Normal rate and regular rhythm. Pulmonary: Effort: Pulmonary effort is normal. No respiratory distress. Breath sounds: Normal breath sounds. Abdominal: General: Abdomen is flat. Palpations: Abdomen is soft. Tenderness: There is no abdominal tenderness. Musculoskeletal: General: Normal range of motion. Cervical back: Neck supple. Right lower leg: No edema. Left lower leg: No edema. Skin: General: Skin is warm and dry. Comments: Scattered varicose veins bilateral legs Neurological: General: No focal deficit present. Mental Status: Geoffrey is alert and oriented to person, place, and time. Psychiatric: Behavior: Behavior normal. I have reviewed the following results: Hemoglobin A1C and BMP Losartan Potassium 50 MG Oral Tablet (Cozaar) Ozempic (2 MG/DOSE) 8 MG/3ML Subcutaneous Solution Pen-injector (Semaglutide (2 MG/DOSE)) B-12-SL 1000 MCG Sublingual Tablet Sublingual (Cyanocobalamin) Gabapentin 400 MG Oral Capsule (Neurontin) Rosuvastatin Calcium 20 MG Oral Tablet (Crestor) metFORMIN HCl 1000 MG Oral Tablet (Glucophage) Insulin Aspart 100 UNIT/ML Subcutaneous Solution Pen-injector (novoLOG) Dakins (1/2 strength) 0.25 % External Solution FreeStyle Test In Vitro Strip (Glucose Blood) Abilify 5 MG Oral Tablet clonazePAM 0.5 MG Oral Tablet (KlonoPIN) Cyclobenzaprine HCl 10 MG Oral Tablet (Flexeril) FREESTYLE LANCETS MISC ZOLOFT 100 MG PO TABS Azelastine HCl 0.1 % Nasal Solution (Astelin) Diclofenac Sodium 1 % External Gel (Voltaren) Triamcinolone Acetonide 0.5 % External Cream Assessment and Plan Preoperative general physical examination (Primary) Patient had preoperative EKG and labs as well as checks x-ray with Stuart Timmons. We reviewed these He was low risk for a low to moderate risk procedure Okay to proceed without further intervention 1. Cardiovascular Risk Assessment: Does patient have Coronary artery disease? Denies Has patient had a coronary stent inserted in the past year? No The patient's functional status is adequate (equal to 4 METS) yes The patient's Revised cardiac risk index(RCRI) score is 0 RCRI High-risk type of surgery (examples include vascular surgery and any open intraperitoneal or intrathoracic procedures) - no History of ischemic heart disease (history of myocardial infarction or a positive exercise test, current complaint of chest pain considered to be secondary to myocardial ischemia, use of nitrate therapy, or ECG with pathological Q waves; do not count prior coronary revascularization procedure unless one of the other criteria for ischemic heart disease is present) - no History of heart failure - no History of cerebrovascular disease - no Diabetes mellitus requiring treatment with insulin - diabetes yes, not on insulin Preoperative serum creatinine >2.0 mg/dL - no Rate of cardiac , nonfatal myocardial infarction, and nonfatal cardiac arrest according to thenumber of predictors No risk factors - 0.4% (95% CI 0.1-0.8) Rate of myocardial infarction, pulmonary edema, ventricular fibrillation, primary cardiac arrest, and complete heart block No risk factors - 0.5% (95% CI 0.2-1.1) 2. Pulmonary Risk Assessment Patient has no known lung disease aside from sleep apnea for which he wears CPAP nightly patient should be extubated to positive pressure if remains mildly sedated and monitored for CO2 retention 3. Pain control Pain management to be determined by surgical service. Because of probable underlying sleep apnea this patient is a higher risk for respiratory depression with narcotic medications and administration should be closely monitored. 4. Venous Thromboembolism (VTE) Prophylaxis Selection of VTE prophylaxis is at the discretion of the surgeon. If the patient is to receive coumadin, he should receive low molecular weight heparin for VTE prophylaxis until they have reached a therapeutic INR for 48 hours. 5. Adrenal Insufficiency Risk Stratification: Steroid exposure in past year includes: denies Risk of iatrogenic adrenal insufficiency is low: no treatment necessary. If additional corticosteroids are indicated, dosing should be based on surgical stress. 6. Hypertension: Is hypertension controlled? Yes. Is blood pressure > 180/110 No. 7. Diabetes Well-controlled Will hold Ozempic for 1 week prior to procedure on metformin on morning of surgery 9. History of problems with anesthesia: When remote history of agitation when awaking from anesthesia should be prepared to medicate if needed 10. History of surgical complications: Denies 11. Instructions for medications on the morning of surgery: Reviewed holding all supplements for 10days prior to procedure, no [id number] NSAIDs for 1 week prior to procedure, hold metformin and losartan on morning of surgery, Ozempic for 1 week prior to procedure Diabetic ulcer of left great toe (HCC) Type 2 diabetes mellitus with hemoglobin A1c goal of less than 7.0% (HCC) ROME (obstructive sleep apnea) Dyslipidemia, goal LDL below 100 Type 2 diabetes mellitus with foot ulcer, without long-term current use of insulin (HCC) - ALBUMIN / CREATININE RATIO, URINE; Future; Expected date: 05/31/2024 - Losartan Potassium 50 MG Oral Tablet (Cozaar); Take 1 Tablet by mouth at bedtime. - VITAMIN B12; Future; Expected date: 05/31/2024 ROME on CPAP Malaise and fatigue - CBC WITH WBC DIFFERENTIAL; Future; Expected date: 05/31/2024 - TSH WITH FREE T4 IF INDICATED; Future; Expected date: 05/31/2024 - LYME DISEASE ANTIBODY SCREEN WITH REFLEX TO CONFIRMATION; Future; Expected date: 05/31/2024 - BASIC METABOLIC PANEL; Future; Expected date: 05/31/2024 - IRON SCREEN, INCLUDING TIBC; Future; Expected date: 05/31/2024 - FERRITIN; Future; Expected date: 05/31/2024 - VITAMIN B12; Future; Expected date: 05/31/2024 - 25-HYDROXY VITAMIN D; Future; Expected date: 05/31/2024 Other specified diabetes mellitus with other skin ulcer (CODE) (HCC) - FERRITIN; Future; Expected date: 05/31/2024 Other fpc (current) drug therapy - VITAMIN B12; Future; Expected date: 05/31/2024 Vitamin D deficiency, unspecified - 25-HYDROXY VITAMIN D; Future; Expected date: 05/31/2024 Follow Up: Return in about 6 months (around 11/28/2024) for Return with Physician, Return with AP. |For: Return with Physician, Return with AP Wrap-Up Time: I spent a total of 40-54 minutes (exact time 51 mins) on the date of service in preparation, delivery, and documentation of the care provided to patient excluding any time spent in the performance ofseparately billed services. Mago Valladares DO [address], 2nd Floor, [address] [place] [address] * Vee Garcia LPN - 05/31/2024 11:26 AM EST Patient has been identified by name and date of . medication and allergy list reviewed Chief Complaint Patient presents with Routine Exam Routine appointment: - Needs new prescription for diabetic shoes. Guilherme out of Losartan Potassium 2 weeks ago (new order pended) pre-op exam Knee surgery 06/19/2024. Patient has been verbally educated on the need or importance of Diabetic Eye Exam, COVID, Flu Vaccine, and HPV Vaccine and has declined topic(s). Urine albumin/creatinine ratio ordered today. Provider aware. documented in this encounter Miscellaneous Notes * Result Encounter Note - Mago Valladares DO - 06/03/2024 8:03 AM EST Proteinuria improved with losartan documented in this encounter Plan of Treatment Upcoming Encounters Date Type Department Care Team (Late st Contact Info) Description 11/29/2024 2:40 PM EDT Office Visit [facility] [address] [facility] Entrance [address], 2nd Floor, [address] [place] [address] Trini Perales DO [address] [place] [address] Health Maintenance Due Date Last Done Comments Cologuard 09/24/2023 Fecal Occult Blood Test 09/24/2023 Sigmoidoscopy 09/24/2023 HPV (Gardasil) Vaccine (2 - 3-dose SCDM series) 11/24/2023 10/27/2023 Diabetic Eye Exam 05/01/2024 05/01/2023, , 05/01/2023, Additional history exists COVID-19 Vaccine ( season) 2024 04/23/2024, 04/11/2023, 03/22/2023, Additional history exists Diabetic Foot Exam 10/23/2024 10/24/2023, 0 08/04/2022 (Done elsewhere) HbA1c 11/10/2024 05/13/2024, 06/0 12/2023, 11/17/2023, Additional history exists Albumin/Creatinine Ratio 05/31/2025 024, 06/26/2023, 05/05/2023, Additional history exists Depression Monitoring 05/31/2025 05/31/2024 GFR 05/31/2025 05/31/2024, 05/10, 05/13/2024, Additional history exists DTap/Tdap Vaccines (3 - Td or Tdap) 05/16/2026 05/16/2016, 06/20/2007 Colonoscopy 04/18/2028 04/18/2018 Colorectal Cancer Screening 04/18/2028 Lipid Panel 03/13/2029 03/13/2024, 07/0 03/2024, 12/14/2023, Additional history exists MENINGOCOCCAL (MENACTRA/MENVEO) Aged Out 02/09/2000, 02/09/2000 No longer eligibl e based on patient's age to complete this topic Hepatitis B Vaccine Completed 06/28/2000, 06/28/2000, 01/26/2000, Additional history exists Pneumococcal Vaccine: Pediatrics (0 to 5 Years) and At-Risk Patients (6 to 64 Years) Completed 05/03/2022, 12/12/2018, 05/16/2016 Influenza Vaccine (FLU shot) Completed 03/27/2024, 04/19/2023, 04/11/2023, Additional history exists Mammogram Discontinued documented as of this encounter Medical Devices Not on filedocumented as of this encounter Procedures Procedure Name Priority Date/Time Associated Diagnosis Comments ALBUMIN / CREATININE RATIO, URINE Routine 05/31/2024 3:10 PM EST Type 2 diabetes mellitus with foot ulcer, without long-term current use of insulin (HCC) documented in this encounter Results * (ABNORMAL) ALBUMIN / CREATININE RATIO, URINE (05/31/2024 3:10 PM EST) Albumin, Random Urine 21.00 mg/dL 05/31/2024 7:29 PM EST [facility] Creatinine, Random Urine 108 mg/dL 05/31/2024 7:29 PM EST [facility] Albumin / Creatinine Ratio, Urine 194(H) <30 mg/g Creat 05/31/2024 7:29 PM EST [facility] Urine Urine specimen / Unknown Non-blood Collection / Unknown 05/31/2024 3:10 PM EST 05/31/2024 3:10 PM EST Narrative [facility] [place] 05/31/2024 7:29 PM EST Normal: <30 mg/g creatinine High: 30-300 mg/g creatinine Very High: >300 mg/g creatinine Nephrotic: >2200 mg/g creatinine Mago Valladares DO LAB URINE ORDERABLES Fi nal Result Performing Organization Address City/[facility]/ZIP Co de Phone Number LABORATORY [address] [address] * 25-HYDROXY VITAMIN D (05/31/2024 12:11 PM EST) 25-Hydroxy Vitamin D 20 >19 ng/mL 05/31/2024 4:54 PM EST [facility] Blood Venous blood specimen / Unknown Venipuncture / Unknown 05/31/2024 12:11 PM EST 05/31/2024 12:11 PM EST Narrative [facility] - 05/31/2024 4:54 PM EST Deficient: <20 ng/mL Insufficient: 20-29 ng/mL Recommended/Optimum:30-50 ng/mL Vitamin D intoxication is rare. If suspicious of Vitamin D toxicity, evaluation of serum Calcium and PTH is recommended. Mago Valladares DO LAB BLOOD ORDERABLES Fi nal Result Performing Organization Address [facility] Co de Phone Number LABORATORY [address] [address] * VITAMIN B12 (05/31/2024 12:11 PM EST) Vitamin B12 939 232 - 1,245 pg/mL 05/31/2024 4:54 PM EST [facility] Blood Venous blood specimen / Unknown Venipuncture / Unknown 05/31/2024 12:11 PM EST 05/31/2024 12:11 PM EST Mago Valladares DO LAB BLOOD ORDERABLES Fi nal Result Performing Organization Address City/[facility] Co de Phone Number [facility] [address] [place] [address] * FERRITIN (05/31/2024 12:11 PM EST) Ferritin 71 30 - 400 ng/mL 05/31/2024 4:54 PM EST [facility] Comment:The above reference range is based on the legal sex of the patient only. Results should be interpreted together with patient's sex at , gender identity, and clinical context. Blood Venous blood specimen / Unknown Venipuncture / Unknown 05/31/2024 12:11 PM EST 05/31/2024 12:11 PM EST us Mago Valladares DO LAB BLOOD ORDERABLES Fi nal Result Performing Organization Address [facility] Co de Phone Number [facility]ATORY [facility] [address] [place] [address] * IRON SCREEN, INCLUDING TIBC (05/31/2024 12:11 PM EST) Iron 55 45 - 176 ug/dL 05/31/2024 4:18 PM EST LABORATORY C Iron Binding Capacity 269 250 - 425 ug/dL 05/31/2024 4:18 PM EST LABORATORY C Transferrin Saturation Percent 20 15 - 55 % 05/31/2024 4:18 PM EST [facility] Blood Venous blood specimen / Unknown Venipuncture / Unknown 05/31/2024 12:11 PM EST 05/31/2024 12:11 PM EST us Mago Valladares DO LAB BLOOD ORDERABLES Fi nal Result Performing Organization Address [facility] Co de Phone Number [facility] [address] [place] [address] * (ABNORMAL) BASIC METABOLIC PANEL (05/31/2024 12:11 PM EST) BUN 23(H) 6 - 20 mg/dL 05/31/2024 4:18 PM EST LABORATORY C CREATININE 1.2 0.6 - 1.2 mg/dL 05/31/2024 4:18 PM EST [facility] Comment:The above reference range is based on the legal sex of the patient only. Results should be interpreted together with patient's sex at , gender identity, and clinical context. EGFR 80 >=60 mL/min 05/31/2024 4:18 PM EST [facility] Comment:eGFR is calculated b ased on the legal sex of the patient, using the CKD- EPI 2020 equation. SODIUM 138 135 - 146 mmol/L 05/31/2024 4:18 PM EST [facility] POTASSIUM 4.7 3.5 - 5.1 mmol/L 05/31/2024 4:18 PM EST [facility] CHLORIDE 99 98 - 107 mmol/L 05/31/2024 4:18 PM EST [facility] CO2 29 22 - 32 mmol/L 05/31/2024 4:18 PM EST [facility] ANION GAP 10 7 - 15 mmol/L 05/31/2024 4:18 PM EST [facility] GLUCOSE 84 70 - 120 mg/dL 05/31/2024 4:18 PM EST [facility] CALCIUM 10.2 8.4 - 10.2 mg/dL 05/31/2024 4:18 PM EST [facility] Blood Venous blood specimen / Unknown Venipuncture / Unknown 05/31/2024 12:11 PM EST 05/31/2024 12:11 PM EST Mago Valladares DO LAB BLOOD ORDERABLES Fi nal Result [facility] [address] [place] [address] * (ABNORMAL) TSH WITH FREE T4 IF INDICATED (05/31/2024 12:11 PM EST) TSH 4.76(H) 0.27 - 4.20 uIU/mL 05/31/2024 4:54 PM EST LABORATORY [facility] Blood Venous blood specimen / Unknown Venipuncture / Unknown 05/31/2024 12:11 PM EST 05/31/2024 12:11 PM EST Mago Valladares DO LAB BLOOD ORDERABLES Fi nal Result [facility] [address] [place] [address] documented in this encounter Visit Diagnoses Diagnosis Preoperative general physical examination- Primary Other specified pre-operative examination Diabetic ulcer of left great toe (HCC) Type II or unspecified type diabetes mellitus with other specified manifestations, not stated as uncontrolled Type 2 diabetes mellitus with hemoglobin A1c goal of less than 7.0% (HCC) ROME (obstructive sleep apnea) Obstructive sleep apnea (adult) (pediatric) Dyslipidemia, goal LDL below 100 Other and unspecified hyperlipidemia Type 2 diabetes mellitus with foot ulcer, without long-term current use of insulin (HCC) ROME on CPAP Obstructive sleep apnea (adult) (pediatric) Malaise and fatigue Other malaise and fatigue Other specified diabetes mellitus with other skin ulcer (CODE) (HCC) Other rat exterminator (current) drug therapy Vitamin D deficiency, unspecified documented in this encounter Advance Directives * Full Code (Latest Code Status on File) Date Activated Date Inactivated Comments 02/03/2022 12:26 PM 02/03/2022 7:04 PM This order reflects the patients wishes and were consensually agreed upon. * Full Code Date Activated Date Inactivated Comments 06/01/2007 9:34 AM 06/01/2007 4:23 PM Care Teams Customer Service Assistant Relationship Specialty Start Date End Date Mago Valladares DO [address] [place] [id number] PCP - General Internal Medicine 05/01/23 documented as of this encounter
--- OUTSIDE RECORDS SUMMARY | 2024-06-20 15:07 | External Medical Summary | Summary of Care ---
Author Name Unknown Organization [facility] Address [address] [place] [address] Phone [phone] Care Team Providers Care Bottle Hop Name Role Phone Mago Valladares DO Primary Care Provider Reason for Visit * Reason Comments Routine Exam Routine appointment: - Needs new prescription for diabetic shoes. Ran out of Losartan Potassium 2 weeks ago (new order pended) pre-op exam Knee surgery 024. Encounter Details Date Type Department Care Team (Late st Contact Info) Description 05/31/2024 12:00 PM EST Office Visit [facility] [address], [address] [place] [address] Mago Valladares DO [address] [place] [address] Preoperative general physical examination*; Diabetic ulcer of left great toe (HCC); Type 2 diabetes mellitus with hemoglobin A1c goal of less than 7.0% ([facility]); ROME (obstructive sleep apnea); Dyslipidemia, goal LDL below 100; Type 2 diabetes mellitus with foot ulcer, without long-term current use of insulin ([facility]); ROME on CPAP; Malaise and fatigue; Other specified diabetes mellitus with other skin ulcer (CODE) ([facility]); Other fdc (current) drug therapy; Vitamin D deficiency, unspecified [...] Nasal Solution (Astelin)Indicatio ns:Chronic rhinitis Administer 1 [place] into nostril in the morning and 1 [place] before bedtime. 30 mL 8 12/05/19 24 [...] ([place]) 02/09/2000 Pneumococcal Conjugate Vacci ne, 20-valent (Aopyths03) 05/03/2022 Pneumococcal Polysaccharide PPV23 (Pneumovax) 12/12/2018,05/16/2016 Seasonal [...] No 05/17/2024 Does the household have a [facility] source of income? 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 Ramirez For fatigue please get blood work Talk to sleep medicine team about narcolepsy or other sleep disorders as well documented in this encounter Progress Notes * Mago Valladares DO - 05/31/2024 12:00 [...] day Discussed with Sleep Medicine center at [facility] whom he follows with an [...] which they are following with Podiatry at [facility] Has required multiple debridements Wearing [...] on Zoloft, Abilify. Following with psychiatry at [facility] Ava Teague ROME Wearing CPAP nightly Acne Following with Dermatology - [facility] Lema Maintained on isotretinoin May be able to discontinue in the near future Per Care Everywhere there is documentation of patient has a history of AFib with ablation and DC cardioversion in the past Patient denies this Recommended we obtain echocardiogram given risk factors in the past but they have not completed Plan is for left knee replacement with [facility] Dr. Muniz on 06/19/2024. Having ongoing [...] supplements for 10days prior to procedure, no mual-zxa-iiwljmq NSAIDs for 1 week prior to procedure, hold metformin and losartan on morning of surgery, Ozempic for 1 week prior to procedure Diabetic ulcer of left great toe (HCC) Type 2 diabetes mellitus with hemoglobin A1c goal of less than 7.0% ([facility]) ROME (obstructive sleep apnea) Dyslipidemia, goal LDL below 100 Type 2 diabetes mellitus with foot ulcer, without long-term current use of insulin ([facility]) - ALBUMIN / CREATININE RATIO, URINE; Future; [...] - FERRITIN; Future; Expected date: 05/31/2024 Other terminal make up operator (current) drug therapy - VITAMIN B12; Future; [...] performance ofseparately billed services. Mago Valladares DO [address], [address] [place] [address] * Vee Garcia LPN - 05/31/2024 11:26 [...] Description 11/29/2024 2:40 PM EDT Office Visit [facility] [address], [address] [place] [address] Trini Perales DO [address] [place] [address] Health Maintenance Due Date Last Done Comments [...] 21.00 mg/dL 05/31/2024 7:29 PM EST [facility] Creatinine, Random Urine 108 mg/dL 05/31/2024 7:29 PM EST [facility] Albumin / Creatinine Ratio, Urine 194(H) <30 mg/g Creat 05/31/2024 7:29 PM EST [facility] Urine Urine specimen / Unknown Non-blood Collection / Unknown 05/31/2024 3:10 PM EST 05/31/2024 3:10 PM EST Narrative [facility] - 05/31/2024 7:29 PM EST Normal: <30 mg/g creatinine High: 30-300 mg/g creatinine Very High: >300 mg/g creatinine Nephrotic: >2200 mg/g creatinine Mago Valladares DO LAB URINE ORDERABLES Fi nal Result LABORATORY [place] [address] [place] [address] * 25-HYDROXY VITAMIN D (05/31/2024 12:11 PM EST) 25-Hydroxy Vitamin D 20 >19 ng/mL 05/31/2024 4:54 PM EST [facility] Blood Venous blood specimen / Unknown Venipuncture / Unknown 05/31/2024 12:11 PM EST 05/31/2024 12:11 PM EST Narrative [facility] - 05/31/2024 4:54 PM EST Deficient: <20 ng/mL Insufficient: 20-29 ng/mL Recommended/Optimum:30-50 ng/mL Vitamin D intoxication is rare. If suspicious of Vitamin D toxicity, evaluation of serum Calcium and PTH is recommended. Mago Valladares DO LAB BLOOD ORDERABLES Fi nal Result Performing Organization Address [facility] Co de Phone Number LABORATORY [address] [address] * VITAMIN B12 (05/31/2024 12:11 PM EST) Vitamin B12 939 232 - 1,245 pg/mL 05/31/2024 4:54 PM EST [facility] Blood Venous blood specimen / Unknown Venipuncture / Unknown 05/31/2024 12:11 PM EST 05/31/2024 12:11 PM EST Mago Valladares DO LAB BLOOD ORDERABLES Fi nal Result Performing Organization Address City/[facility]/ZIP Co de Phone Number LABORATORY [address] [address] * FERRITIN (05/31/2024 12:11 PM EST) Ferritin 71 30 - 400 ng/mL 05/31/2024 4:54 PM EST [facility] Comment:The above reference range is based on the legal sex of the patient only. Results should be interpreted together with patient's sex at , gender identity, and clinical context. Blood Venous blood specimen / Unknown Venipuncture / Unknown 05/31/2024 12:11 PM EST 05/31/2024 12:11 PM EST Mago Souza Jacquelyn LAB BLOOD ORDERABLES Fi nal Result Performing Organization Address [facility] de Phone Number [facility] [address] [place] [address] * IRON SCREEN, INCLUDING TIBC (05/31/2024 12:11 PM EST) Iron 55 45 - 176 ug/dL 05/31/2024 4:18 PM EST [facility] Iron Binding Capacity 269 250 - 425 ug/dL 05/31/2024 4:18 PM EST [facility] Transferrin Saturation Percent 20 15 - 55 % 05/31/2024 4:18 PM EST [facility] Blood Venous blood specimen / Unknown Venipuncture / Unknown 05/31/2024 12:11 PM EST 05/31/2024 12:11 PM EST Mago Smithtung Valladares LAB BLOOD ORDERABLES Fi nal Result Performing Organization Address [facility] Phone Number [facility] [address] [place] [address] * (ABNORMAL) BASIC METABOLIC PANEL (05/31/2024 12:11 PM EST) BUN 23(H) 6 - 20 mg/dL 05/31/2024 4:18 PM EST LABORATORY C CREATININE 1.2 0.6 - 1.2 mg/dL 05/31/2024 4:18 PM EST [facility] Comment:The above reference range is based on [...] ORDERABLES Fi nal Result Performing Organization Address City/[facility]/ZIP Co de Phone Number [facility] [address] [place] [address] * (ABNORMAL) TSH WITH FREE T4 IF INDICATED (05/31/2024 12:11 PM EST) TSH 4.76(H) 0.27 - 4.20 uIU/mL 05/31/2024 4:54 PM EST [facility] Blood Venous blood specimen / Unknown Venipuncture / Unknown 05/31/2024 12:11 PM EST 05/31/2024 12:11 PM EST Mago Valladares DO LAB BLOOD ORDERABLES Fi nal Result [facility] [address] [place] [address] documented in this encounter Visit Diagnoses Diagnosis [...] with other skin ulcer (CODE) (HCC) Other terminal make up operator (current) drug therapy Vitamin D deficiency, unspecified documented in this encounter Advance Directives * Full Code (Latest Code Status on File) Date Activated Date Inactivated Comments 02/03/2022 12:26 PM 02/03/2022 7:04 PM This order reflects the patients wishes and were consensually agreed upon. * Full Code Date Activated Date Inactivated Comments 06/01/2007 9:34 AM 06/01/2007 4:23 PM Care Teams Bottle Hop Relationship Specialty Start Date End Date Mago Valladares DO [address] [place] [id number] PCP - General Internal Medicine 05/01/23 documented as of this encounter
--- OUTSIDE RECORDS SUMMARY | 2024-06-20 15:07 | External Medical Summary | Summary of Care ---
Author Name Unknown Organization [facility] Address [address] [place] [address] Phone [phone] Care Team Providers Care Sheet Rock Hanger Name Role Phone Mago Valladares DO Primary Care Provider Reason for Visit * Reason Comments Outpatient Testing Encounter Details Date Type Department Care Team (Late st Contact Info) Description 05/31/2024 12:20 PM [facility] Laboratory Laboratory, [place] [address] [place] [address] [facility] [address] [place] [address] Malaise and fatigue; Other specified diabetes mellitus with other skin ulcer (CODE) ([facility]); Type 2 diabetes mellitus with foot ulcer, without long-term current use of insulin ([facility]); Other petroleum terminal plant operator (current) drug therapy; Vitamin D deficiency, unspecified Allergies Active Allergy Reactions Criticality Noted Date Comments Dust 03/06/2023 Dust Mite Extract 03/17/2016 Lisinopril 02/12/2019 Angioedema in the father Pollen 08/18/2015 documented as of this encounter (statuses as of 05/31/2024) Medications ZOLOFT 100 MG PO TABS Take by mouth. 2 pills in morning Active FREESTYLE LANCETS MISC TEST twice a day 0 5 Active clonazePAM 0.5 MG Oral Tablet (KlonoPIN) [...] 1g to affected area 50 g 3 3 Active FreeStyle Test In Vitro Strip (Glucose Blood)Indications: Type 2 diabetes mellitus with hemoglobin A1c goal of less than 7.0% (HCC) To check blood sugar twice daily DX11.9 180 Strip 3 3 Active Dakins (1/2 strength) 0.25 % External [...] dosing of 30 units 1 Each 5 3 Active metFORMIN HCl 1000 MG Oral Tablet (Glucophage)Indica tions:Type 2 diabetes mellitus with hemoglobin A1c goal of less than 7.0% (HCC) Take by mouth 2 times a day with morning and evening meals. One tab twice daily 180 Tablet 2 4 Active B-12-SL 1000 MCG Sublingual Tablet Sublingual (Cyanocobalamin)In dications:Type 2 diabetes mellitus with hemoglobin A1c goal of less than 7.0% (HCC) Place 1,000 mcg under the tongue in the morning. 90 Tablet 3 4 Active Rosuvastatin Calcium 20 MG Oral Tablet (Crestor)Indicatio ns:Dyslipidemia, goal LDL below 100 Take 1 Tablet by mouth in the morning. 90 Tablet 3 4 Active Gabapentin 400 MG Oral Capsule (Neurontin)Indicat ions:Type 2 diabetes mellitus with hemoglobin A1c goal of less than 7.0% (HCC),Primary osteoarthritis of left knee Take 1 Capsule by mouth in the morning and 1 Capsule at noon and 1 Capsule before bedtime. 270 Capsule 1 4 Active Azelastine HCl 0.1 % Nasal Solution (Astelin)Indicatio ns:Chronic rhinitis Administer 1 [place] into nostril in the morning and 1 [place] before bedtime. 30 mL 8 4 Active Ozempic (2 MG/DOSE) 8 MG/3ML Subcutaneous Solution Pen-injector (Semaglutide (2 MG/DOSE))Indicatio ns:Type 2 diabetes mellitus with hemoglobin A1c goal of less than 7.0% ([facility]) INJECT 2 MG UNDER THE SKIN ONCE WEEKLY 9 mL 1 4 Active Losartan Potassium 50 MG Oral Tablet (Cozaar)Indication s:Type 2 diabetes mellitus with foot ulcer, without long-term current use of insulin ([facility]) Take 1 Tablet by mouth at bedtime. 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 Anxiety state 07/22/2008 Internal derangement of knee 04/11/2007 documented as of this encounter (statuses as of 05/31/2024) Resolved Problems Problem Noted Date Diagnosed Date [...] as of this encounter (statuses as of 05/31/2024) Immunizations Name Administration Dates Next Due COVID-19 mRNA, LNP-s, No Pre serve, 2-Dose Series (Moderna) 09/04/2020,08/07/2020 COVID-19 mRNA, LNP-s, No Pre serve, 2-Dose Series (Pfizer) 03/22/2023 COVID-19, mRNA, LNP-s, PF, B ooster, 100mcg/0.5mg (Moderna) 05/12/2021 Covid-19, Mrna, Lnp-s, Pf, B ivalent, 30 Mcg, IM, 12 yrs and above (Pfizer) 05/02/2022 Hepatitis B Vaccine 06/28/2000,01/26/2000,1999 Hepatitis B, 20+ yrs 06/28/2000,01/26/20 00,12/28/1999,10/08,04/28/1997,03/18/1997 Meningococcal MCV4P Conjugat e Vaccine (Menactra) 02/09/2000 Meningococcal Polysaccharide Vaccine (Menommune) 02/09/2000 Pneumococcal Conjugate Vacci ne, 20-valent ([id number]) 05/03/2022 Pneumococcal Polysaccharide PPV23 (Pneumovax) 12/12/2018,05/16/2016 Seasonal [...] No 05/17/2024 Does the household have a re gular source of income? 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 on file Not on file Not on file documented as of this encounter Plan of Treatment Upcoming Encounters Date Type Department Care Team (Late st Contact Info) Description 06/07/2024 8:20 AM EST Office Visit Optometry, [facility] [address] [place] [address] [address] Shoemaker, [address] [facility] [place] [address] 11/29/2024 2:40 PM EDT Office Visit [facility] [address] [facility] Entrance B, 2nd Floor, [address] [place] [address] Trini Perales, [address] [place] [phone] Pending Results Name Type Priority Associated Diagnoses Date /Time CBC WITH WBC DIFFERENTIAL Lab Routine Malaise and fatigue 05/31/2024 12:11 PM EST TSH WITH FREE T4 IF INDICATED Lab Routine Malaise and fatigue 05/31/2024 12:11 PM EST LYME DISEASE ANTIBODY SCREEN WITH REFLEX TO CONFIRMATION Lab Routine Malaise and fatigue 05/31/2024 12:11 PM EST BASIC METABOLIC PANEL Lab Routine Malaise and fatigue 05/31/2024 12:11 PM EST IRON SCREEN, INCLUDING TIBC Lab Routine Malaise and fatigue 05/31/2024 12:11 PM EST FERRITIN Lab Routine Malaise and fatigue Other specified diabetes mellitus with other skin ulcer (CODE) ([facility]) 05/31/2024 12:11 PM EST VITAMIN B12 Lab Routine Type 2 diabetes mellitus with foot ulcer, without long-term current use of insulin ([facility]) Malaise and fatigue Other petroleum terminal plant operator (current) drug therapy 05/31/2024 12:11 PM EST 25-HYDROXY VITAMIN D Lab Routine Malaise and fatigue Vitamin D deficiency, unspecified 05/31/2024 12:11 PM EST CBC Lab Routine Malaise and fatigue 05/31/2024 12:11 PM EST DIFFERENTIAL, AUTOMATED Lab Routine Malaise and fatigue 05/31/2024 12:11 PM EST LYME DISEASE ANTIBODY SCREEN Lab Routine Malaise and fatigue 05/31/2024 12:11 PM EST Health Maintenance Due Date Last Done Comments Cologuard 09/24/2023 Fecal Occult Blood Test 09/24/2023 Sigmoidoscopy 09/24/2023 HPV (Gardasil) Vaccine (2 - 3-dose SCDM series) 11/24/2023 10/27/2023 Diabetic Eye Exam 05/01/2024 05/01/2023, , 05/01/2023, Additional history exists COVID-19 Vaccine ( season) 2024 04/23/2024, 04/11/2023, 03/22/2023, Additional history exists Albumin/Creatinine Ratio 06/26/202406/26/ 023, 05/05/2023, 04/26/2022, Additional history exists Diabetic Foot Exam 10/23/2024 10/24/2023, 0 08/04/2022 (Done elsewhere) HbA1c 11/10/2024 05/13/2024, 06/0 12/2023, 11/17/2023, Additional history exists GFR 05/23/2025 05/23/2024, 11/0 10/2023, 05/13/2024, Additional history exists Depression Monitoring 05/31/2025 05/31/2024 DTap/Tdap Vaccines (3 - Td or Tdap) [...] Not on filedocumented as of this encounter Visit Diagnoses Diagnosis Malaise and fatigue Other malaise and fatigue Other specified diabetes mellitus with other skin ulcer (CODE) (HCC) Type 2 diabetes mellitus with foot ulcer, without long-term current use of insulin (HCC) Other petroleum terminal plant operator (current) drug therapy Vitamin D deficiency, unspecified documented in this encounter Advance Directives * Full Code (Latest Code Status on File) Date Activated Date Inactivated Comments 02/03/2022 12:26 PM 02/03/2022 7:04 PM This order reflects the patients wishes and were consensually agreed upon. * Full Code Date Activated Date Inactivated Comments 06/01/2007 9:34 AM 06/01/2007 4:23 PM Care Teams Sheet Rock Hanger Relationship Specialty Start Date End Date Mago Valladares DO [address] [place] [address] [place] [address] PCP - General Internal Medicine 05/01/23 documented as of this encounter
--- OUTSIDE RECORDS SUMMARY | 2024-06-20 15:07 | External Medical Summary | Continuity of Care Document ---
Author Name Unknown Organization [facility] [address] [id number] Address [address] [place] [phone] Care Team Providers Care Fabric Cutter Name Role Phone Mago Valladares Primary Care Physician [phone] [id number] Date[facility]s): 05/30/24 - 05/30/24 [facility] [address] [facility] [address] [facility] Medicine [address] [address] Encounter Diagnosis Osteoarthritis of left knee(Discharge Diagnosis) - 05/30/24 Discharge Disposition: Home or Self Care Attending Physician: ELISEO Marion, Eric Kumar Referring Physician: MD Cristy, George Rivas Allergies, Adverse Reactions, Alerts Substance Criticality Severity Reaction Reaction Severity Status lisinopril unknown Active Pollen Sneezing Active Medications Abilify 10 mg oral tablet take 1/2 tablet by mouth once daily Start Date: 02/26/24 Status: Ordered azelastine 137 mcg/inh (0.1%) nasal spray instill 1 spray into each nostril every morning and BEFORE BEDTIME Start Date: 02/26/24 Status: Ordered B-12 500 mcg sublingual tablet dissolve 2 tablets under the tongue every morning Start Date: 02/26/24 Status: Ordered clonazePAM 0.5 mg oral tablet take 1 tablet by mouth twice a day Start Date: 02/26/24 Status: Ordered gabapentin 400 mg oral capsule take 1 capsule by mouth three times a day Start Date: 02/26/24 Status: Ordered ISOtretinoin (Eqv-Accutane) 40 mg oral capsule 1 cap, take 3 capsules by mouth once daily Start Date: 02/26/24 Status: Ordered losartan 50 mg oral tablet take 1 tablet by mouth at bedtime Start Date: 02/26/24 Status: Ordered metFORMIN 1000 mg oral tablet take 1 tablet by mouth every morning and evening with meals Start Date: 02/26/24 Status: Ordered minocycline 100 mg oral capsule Start: 03/25/24 1:33:00 PM EDT, 1 tab BID for 6 weeks with food Start Date: 03/25/24 Status: Ordered NovoLOG FlexPen 100 units/mL injectable solution inject subcutaneously PER SLIDING SCALE: 150-200 = 2 UNITS; 201-2... (REFER TO PRESCRIPTION NOTES). Start Date: 02/26/24 Status: Ordered Ozempic (2 mg dose) 8 mg/3 mL subQ pen Start: 02/26/24 9:37:00 AM EDT, 2 mg =, subQ, q7days, Disp# 3 mL Start Date: 02/26/24 Status: Ordered rosuvastatin 20 mg oral tablet take 1 tablet by mouth every morning Start Date: 02/26/24 Status: Ordered sertraline 100 mg oral tablet take 2 tablets by mouth daily Start Date: 02/26/24 Status: Ordered Mental Status 05/30/24 Barriers to Learning one year None evide nt Mandatory Health Literacy Documentation Yes Health Literacy Communication Barriers N ever Primary Language Latvian Problem List Condition Confirmation Course Effective Dates Status H ealth Status Informant Osteoarthritis of left knee Confirmed Active Diagnosis Diagnosis Type Effective Dates Health Status Clinical Service Informant Osteoarthritis of left knee Discharge Diagnosis 05/30/24 Vital Signs Most recent to oldest [Reference Range]: 1 Height 200 cm (05/30/24 2:32 PM) Patient Weight 143.3 kg (05/30/24 2:32 PM) Body Mass Index 35.83 kg/m2 (05/30/24 2:32 PM) Temperature [36.5-37.9 DegC] 36.5 DegC (05/30/24 2:32 PM) Respiratory Rate 30 br/min (05/30/24 2:32 PM) Blood Pressure 130/76mmHg (05/30/24 2:32 PM) Social History Social History Type Response Smoking Status Never smoked cigaret jacqueline Sex Male Sex Representation Male (finding) Pre-OP H & P * ELISEO Marion Cory D: PERFORM, MODIFY, MODIFY Event Display: Pre-OP H & P Authored Date: [id number] PRE-OPERATIVE HISTORY AND PHYSICAL Name: STEFFANY SHELBY Patient Number: [id number] : 1980 Date of Service: 05/30/2024 PRE-OP Diagnosis: Left knee DJD Planned Procedure: Left total knee arthroplasty Chief Complaint: Left knee pain History of Present Illness (including history relevant to procedure): This 43-year-old male presents today for his preoperative history and physical. He is scheduled to undergo a left knee total kneearthroplasty with Dr. Muniz on 06/19/2024. The patient has had an ongoing history of left knee pain for 4 years. It has become worse with time. He has had 2 knee arthroscopies for meniscectomy. He has tried activity modification, physical therapy, viscosupplementation injections, liquid nitrogen injections, and neuroablation, all without lasting relief. He now elects to proceed with totalknee arthroplasty in hopes of improving his pain. Discomfort is worse with weightbearing. It is affecting his ADLs. He denies any numbness or tingling. He states he ambulates with a limp. He has a history of skin lesions as well as a great toe lesion. He states these are under control. Review Of Systems: A total of 10 systems were reviewed and are significant only for below stated conditions. Family history: Noncontributory. Social history: The patient is single. No tobacco use, no EtOH use. He denies any illicit drug use. Past Medical History: Problems: Osteoarthritis of left knee Tourette syndrome Diabetes, insulin-dependent Hypertension Obstructive sleep apnea Use of CPAP Anxiety Depression ADHD bipolar disorder Chronic back pain History of kidney stones Procedure History Procedure Procedure Date Comments Breast reduction Tonsillectomy with adenoidectomy UPPP Left knee arthroscopy/meniscectomy Sinus surgery Left great toe surgery Left knee arthroscopy/meniscectomy [id number] Allergies and Sensitivities: lisinopril(unknown) Pollen(Sneezing) Current Home Meds: (Last Updated 05/30 14:31) ARIPiprazole (Abilify 10 mg oral tablet) take 1/2 tablet by mouth once daily ISOtretinoin (ISOtretinoin (Eqv-Accutane) 40 mg oral capsule) 40 mg take 3 capsules by mouth once daily HAZARDOUS MEDICATION | capsule: green | suspension: green - C [place] 02/25 09:38 azelastine nasal (azelastine 137 mcg/inh (0.1%) nasal spray) instill 1 spray into each nostril every morning and BEFORE BEDTIME clonazePAM (clonazePAM 0.5 mg oral tablet) take 1 tablet by mouth twice a day HAZARDOUS MEDICATION | tablet: green | ODT: green | suspension: green - C [place] 02/25 09:38 cyanocobalamin (B-12 500 mcg sublingual tablet) dissolve 2 tablets under the tongue every morning gabapentin (gabapentin 400 mg oral capsule) take 1 capsule by mouth three times a day insulin aspart (NovoLOG FlexPen 100 units/mL injectable solution) inject subcutaneously PER SLIDINGSCALE: 150-200 = 2 UNITS; 201-2... (REFER TO PRESCRIPTION NOTES). losartan (losartan 50 mg oral tablet) take 1 tablet by mouth at bedtime metFORMIN (metFORMIN 1000 mg oral tablet) take 1 tablet by mouth every morning and evening with meals minocycline (minocycline 100 mg oral capsule) 1 tab BID for 6 weeks with food rosuvastatin (rosuvastatin 20 mg oral tablet) take 1 tablet by mouth every morning semaglutide (Ozempic (2 mg dose) 8 mg/3 mL subQ pen) 2 mg subQ q7days sertraline (sertraline 100 mg oral tablet) take 2 tablets by mouth daily Vitals: Last Updated 05/30/24 14:32 Weights: Last Updated 05/30/24 14:32 Date Temp Pulse BP RR SpO2 FIO2 Date Wt(kg) Wt(lb) 05/30 14:32 36.5 130/76 30 95 05/30 14:32 143.3 315 05/30 14:32 143.3 315 24 Hr Tmax: 36.5 at 05/30 14:32 Initial Wt: 05/30 143.3 kg 315 lb Physical Exam: (relevant to the procedure, including heart and lung evaluation) General: Well-developed, well-nourished, middle-aged male, in no acute distress. Sitting in a chair. Alert and oriented. HEENT: Normocephalic, atraumatic. Eyes PERRLA, EOMI. Nares patent bilaterally without nasal drainage. Oropharynx with moist oral mucosa. Visible uvuloplasty. Fair dentition. Neck: No JVD. Cardiac: RRR. No MGR. Peripheral pulses are 2+. Lungs: Clear to auscultation bilaterally. No crackles, rhonchi, or wheezing. Good air movement. Abdomen: Mildly obese. Bowel sounds present x 4. Soft nontender. No organomegaly. No masses. Extremities: Left knee evaluation reveals no obvious asymmetry or deformity. He has good motion of the knee with full terminal extension. Flexion to greater than 110 degrees. Strength is 5/5 with good quad tone. There is focal discomfort with palpation over the medial joint line. He also has peripatellar discomfort today. Ambulating today with a slightly antalgic gait. No defect in the patellar tendon or quadriceps tendon. Stable collateral ligaments. Neuro: Gross sensation is intact across the left leg by soft touch. Skin: Warm dry with good turgor. Minor erythemic patches present on his skin consistent with dry skin. Extensive tattoos. No intra-articular effusion at the left knee. Studies of Lab Results (relevant to the procedure): Radiographic imaging and MRI imaging previouslyobtained of the left knee shows end-stage DJD of the knee, worst in the lateral compartment. Periarticular osteophytes, subchondral close, and joint space narrowing are all present. ASSESSMENT: Left knee end-stage DJD Plan: Approximately 30 minutes was spent with the patient reviewing operative procedure, postoperative recovery, physical therapy requirements, and medication use. Postoperative prescriptions for Percocet and Eliquis will be sent to his pharmacy upon discharge from the hospital. Anticipate discharge to home with outpatient PT. He states he lives 2 blocks from the therapy department that he would choose to use. PDMP was checked and there are no concerning findings. He is currently asymptomatic of any COVID-19 or influenza symptoms. Prescription was provided for a walker as well as for outpatient PT. He is supposed to see his PCP for medical clearance tomorrow. Preoperative lab work, EKG, andchest x- ray have already been obtained. Follow-up with me at 4 PM on 07/04 for staple removal. This dictation has been completed using [employer] text voice recognition software. Grammatical errors, omissions, insertions, and misspellings may be present due to the limitations of the software. Electronic Signature on File Electronically Reviewed/Signed by: Eric Marion PA-C Author Signature Dt/Tm:05/30/2024 05:32 PM Division of Sports Medicine Electronically Reviewed/Signed by: MD Sundeep Hairigner Signature Dt/Tm: 05/30/2024 05:45 PM Sheet Metal Shop Foreman for Clinical Affairs, [facility] [place] Professor in Orthopaedics Contact Printer Dry Film, [facility] Sports Medicine CDS Patient Care team information Care Team Personnel Name: DO Valladares Laura Nicole Position: Referring Member Role: Primary Care Provider Address: [place] [address] [address]"
--- OUTSIDE RECORDS SUMMARY | 2024-06-20 15:07 | External Medical Summary ---
Author Name Unknown Address Unknown Organization [id number]:[facility] - [address] [place] [address] Laboratory Report Ordering Provider Test Date Status SUSHILORIANA 05/31/2024 15:10:08 Final Normal: <30 mg/g creatinine< br/>High: 30-300 mg/g creatinine
Very High: >300 mg/g creatinine
Nephrotic: >2200 mg/g creatinine Observation Date Value Abnormality Reference (Units ) Status Albumin, Urine 05/31/2024 15:10:08 21.00 (mg/dL) Final Creatinine, Urine 05/31/2024 15:10:08 108 (mg/dL) Final Albumin/Creatinine [Mass Ratio] in Urine 05/31/2024 15:10:08 194 Above high normal <30 (mg/g Creat) Final Performing Location [facility] - [address] [facility] [id number]
--- OUTSIDE RECORDS SUMMARY | 2024-06-20 15:07 | External Medical Summary | Summary of Care ---
Author Name Unknown Organization [facility] Address [address] [place] [address] Phone [phone] Care Team Providers Care Shoe Sprayer Name Role Phone Mago Valladares DO Primary Care Provider Reason for Visit * Reason Comments Routine Exam Routine appointment: - Needs new prescription for diabetic shoes. Ran out of Losartan Potassium 2 weeks ago (new order pended) pre-op exam Knee surgery 024. Encounter Details Date Type Department Care Team (Late st Contact Info) Description 05/31/2024 12:00 PM EST Office Visit [facility] [address], [address] [place] [address] Mago Valladares DO [address] [place] [address] Preoperative general physical examination*; Diabetic ulcer of left great toe (HCC); Type 2 diabetes mellitus with hemoglobin A1c goal of less than 7.0% ([facility]); ROME (obstructive sleep apnea); Dyslipidemia, goal LDL below 100; Type 2 diabetes mellitus with foot ulcer, without long-term current use of insulin ([facility]); ROME on CPAP; Malaise and fatigue; Other specified diabetes mellitus with other skin ulcer (CODE) ([facility]); Other ocean transportation intermediary (current) drug therapy; Vitamin D deficiency, unspecified [...] Nasal Solution (Astelin)Indicatio ns:Chronic rhinitis Administer 1 Mullins into nostril in the morning and 1 Mullins before bedtime. 30 mL 8 12/05/19 24 [...] ([place]) 02/09/2000 Pneumococcal Conjugate Vacci ne, 20-valent ([id number]) 05/03/2022 Pneumococcal Polysaccharide PPV23 (Pneumovax) 12/12/2018,05/16/2016 Seasonal [...] No 05/17/2024 Does the household have a [facility] source of income? 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 Following with psychiatry at [facility] Ava Teague ROME Wearing CPAP nightly Acne [...] Plan is for left knee replacement with [facility] Dr. Muniz on 06/19/2024. Having ongoing [...] supplements for 10days prior to procedure, no eacr-jjl-ubrtqfo NSAIDs for 1 week prior to procedure, hold metformin and losartan on morning of surgery, Ozempic for 1 week prior to procedure Diabetic ulcer of left great toe (HCC) Type 2 diabetes mellitus with hemoglobin A1c goal of less than 7.0% ([facility]) ROME (obstructive sleep apnea) Dyslipidemia, goal LDL below 100 Type 2 diabetes mellitus with foot ulcer, without long-term current use of insulin ([facility]) - ALBUMIN / CREATININE RATIO, URINE; Future; [...] - FERRITIN; Future; Expected date: 05/31/2024 Other ocean transportation intermediary (current) drug therapy - VITAMIN B12; Future; [...] performance ofseparately billed services. Mago Valladares DO [address], [address] [place] [address] * eVe Garcia LPN - 05/31/2024 11:26 AM EST [...] today. Provider aware. documented in this encounter Plan of Treatment Upcoming Encounters Date Type Department Care Team (Late st Contact Info) Description 06/07/2024 8:20 AM EST Office Visit Optometry, [facility] [address] [place] [address] Geoffrey Shoemaker, OD [address] [place] [address] 11/29/2024 2:40 PM EDT Office Visit [facility] [address], [address] [place], [place] [id number] Trini Perales DO [address] [place] [id number] Pending Results Name Type Priority Associated Diagnoses Date /Time ALBUMIN / CREATININE RATIO, URINE Lab Routine Type 2 diabetes mellitus with foot ulcer, without long-term current use of insulin ([facility]) 05/31/2024 3:10 PM EST CBC WITH WBC DIFFERENTIAL Lab Routine Malaise [...] with other skin ulcer (CODE) ([facility]) 05/31/2024 12:11 PM EST VITAMIN B12 Lab Routine Type 2 diabetes mellitus with foot ulcer, without long-term current use of insulin ([facility]) Malaise and fatigue Other ocean transportation intermediary (current) drug therapy 05/31/2024 12:11 PM EST 25-HYDROXY VITAMIN D Lab Routine Malaise and fatigue Vitamin D deficiency, unspecified 05/31/2024 12:11 PM EST Scheduled Orders Name Type Priority Associated Diagnoses Orde r Schedule ALBUMIN / CREATININE RATIO, URINE Lab Routine Type 2 diabetes mellitus with foot ulcer, without long-term current use of insulin (HCC) Expected: 05/31/2024, Expires: 05/31/2025 CBC WITH WBC DIFFERENTIAL Lab Routine Malaise and fatigue Expected: 05/31/2024 (Approximate), Expires: 05/31/2025 TSH WITH FREE T4 IF INDICATED Lab Routine Malaise and fatigue Expected: 05/31/2024 (Approximate), Expires: 05/31/2025 LYME DISEASE ANTIBODY SCREEN WITH REFLEX TO CONFIRMATION Lab Routine Malaise and fatigue Expected: 05/31/2024, Expires: 05/31/2025 BASIC METABOLIC PANEL Lab Routine Malaise and fatigue Expected: 05/31/2024 (Approximate), Expires: 05/31/2025 IRON SCREEN, INCLUDING TIBC Lab Routine Malaise and fatigue Expected: 05/31/2024 (Approximate), Expires: 05/31/2025 FERRITIN Lab Routine Malaise and fatigue Other specified diabetes mellitus with other skin ulcer (CODE) (HCC) Expected: 05/31/2024 (Approximate), Expires: 05/31/2025 VITAMIN B12 Lab Routine Type 2 diabetes mellitus with foot ulcer, without long-term current use of insulin (HCC) Malaise and fatigue Other usp (current) drug therapy Expected: 05/31/2024 (Approximate), Expires: 05/31/2025 25-HYDROXY VITAMIN D Lab Routine Malaise and fatigue Vitamin D deficiency, unspecified Expected: 05/31/2024 (Approximate), Expires: 05/31/2025 Health Maintenance Due Date Last Done Comments Cologuard 09/24/2023 Fecal Occult Blood Test 09/24/2023 Sigmoidoscopy 09/24/2023 HPV (Gardasil) Vaccine (2 - 3-dose SCDM series) 11/24/2023 10/27/2023 Diabetic Eye Exam 05/01/2024 05/01/2023, , 05/01/2023, Additional history exists COVID-19 Vaccine ( season) 2024 04/23/2024, 04/11/2023, 03/22/2023, Additional history exists Albumin/Creatinine Ratio 06/26/2024 023, 05/05/2023, 04/26/2022, Additional history exists Diabetic Foot Exam 10/23/2024 10/24/2023, 0 08/04/2022 (Done elsewhere) HbA1c 11/10/2024 05/13/2024, 06/0 12/2023, 11/17/2023, Additional history exists GFR 05/23/2025 05/23/2024, 110 10/2023, 05/13/2024, Additional history exists Depression Monitoring 05/31/2025 05/31/2024 DTap/Tdap Vaccines (3 - Td or Tdap) 05/16/2026 05/16/2016, 06/20/2007 Colonoscopy 04/18/2028 04/18/2018 Colorectal Cancer Screening 04/18/2028 Lipid Panel 03/13/2029 03/13/2024, 070 03/2024, 12/14/2023, Additional history exists MENINGOCOCCAL (MENACTRA/MENVEO) [...] as of this encounter Visit Diagnoses Diagnosis Preoperative general [...] with other skin ulcer (CODE) (HCC) Other ocean transportation intermediary (current) drug therapy Vitamin D deficiency, unspecified documented in this encounter Advance Directives * Full Code (Latest Code Status on File) Date Activated Date Inactivated Comments 02/03/2022 12:26 PM 02/03/2022 7:04 PM This order reflects the patients wishes and were consensually agreed upon. * Full Code Date Activated Date Inactivated Comments 06/01/2007 9:34 AM 06/01/2007 4:23 PM Care Teams Shoe Sprayer Relationship Specialty Start Date End Date Mago Valladares DO [address] [place] [address] [place] [id number] PCP - General Internal Medicine 05/01/23 documented as of this encounter
--- OUTSIDE RECORDS SUMMARY | 2024-06-20 15:07 | External Medical Summary ---
Author Name Unknown Address Unknown Organization [id number]:[facility] [place] [address] [place] [address] Laboratory Report Ordering Provider Test Date Status ORIANA LING 05/31/2024 12:11:12 Final Observation Date Value Abnormality Reference (Units ) Status Vitamin B12 05/31/2024 12:11:12 [id number] (pg/mL) Final Performing Location [facility] - [address] [place] [address]
--- OUTSIDE RECORDS SUMMARY | 2024-06-20 15:07 | External Medical Summary | Summary of Care ---
Author Name Unknown Organization [facility] Address [address] [place] [address] Phone [phone] Care Team Providers Care Irrigation Equipment Mechanic Name Role Phone Mago Valladares DO Primary Care Provider Encounter Details Date Type Department Care Team (Late st Contact Info) Description 06/03/2024 Orders Only Outcomes Research Department [address] [place], [place] [id number] Saima Leal CHRA [facility] Other*[id number] Allergies Active Allergy Reactions Criticality Noted Date Comments Dust 03/06/2023 Dust Mite Extract 03/17/2016 Lisinopril 02/12/2019 Angioedema in the father Pollen 08/18/2015 documented as of this encounter (statuses as of 06/03/2024) Medications ZOLOFT 100 MG PO TABS Take [...] Nasal Solution (Astelin)Indicatio ns:Chronic rhinitis Administer 1 [place] into nostril in the morning and 1 [place] before bedtime. 30 mL 8 4 Active Ozempic (2 MG/DOSE) 8 MG/3ML Subcutaneous Solution Pen-injector (Semaglutide (2 MG/DOSE))Indicatio ns:Type 2 diabetes mellitus with hemoglobin A1c goal of less than 7.0% ([facility]) INJECT 2 MG UNDER THE SKIN ONCE WEEKLY 9 mL 1 4 Active Losartan Potassium 50 MG Oral Tablet (Cozaar)Indication s:Type 2 diabetes mellitus with foot ulcer, without long-term current use of insulin ([facility]) Take 1 Tablet by mouth at bedtime. 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 on file Not on file Not on file documented as of this encounter Plan of Treatment Upcoming Encounters Date Type Department Care Team (Late st Contact Info) Description 06/07/2024 8:20 AM EST [facility] [address] [place] [address] [place] Geoffrey Jamel, OD [address] [place] [address] 11/29/2024 2:40 PM EDT Office Visit [facility] [address], [address] [place] [address] Trini Perales DO [address] [place] [phone] Scheduled Orders Name Type Priority Associated Diagnoses Orde r Schedule MYCODE SUBSEQUENT ADULT Lab Routine [facility] Other*[id number] Every 6 Months for 2 Occurrences starting 06/03/2024 until 06/23/2025 Health Maintenance Due Date Last Done Comments [...] 12/2023, 11/17/2023, Additional history exists Albumin/Creatinine Ratio 05/31/202505/31/2 024, 06/26/2023, 05/05/2023, Additional history exists Depression Monitoring 05/31/2025 05/31/2024 GFR 05/31/2025 05/31/2024, 05/10, 05/13/2024, Additional history exists DTap/Tdap Vaccines (3 - Td or Tdap) 05/16/2026 05/16/2016, 06/20/2007 Colonoscopy 04/18/2028 04/18/2018 Colorectal Cancer Screening 04/18/2028 Lipid Panel 03/13/2029 03/13/2024, 03/2024, 12/14/2023, Additional history exists MENINGOCOCCAL (MENACTRA/MENVEO) [...] as of this encounter Visit Diagnoses Diagnosis [facility] Other*[id number] documented in this encounter Advance Directives * Full Code (Latest Code Status on File) Date Activated Date Inactivated Comments 02/03/2022 12:26 PM 02/03/2022 7:04 PM This order reflects the patients wishes and were consensually agreed upon. * Full Code Date Activated Date Inactivated Comments 06/01/2007 9:34 AM 06/01/2007 4:23 PM Care Teams Irrigation Equipment Mechanic Relationship Specialty Start Date End Date Mago Valladares DO [address] [place] [address] [place] [address] PCP - General Internal Medicine 05/01/23 documented as of this encounter
--- OUTSIDE RECORDS SUMMARY | 2024-06-20 15:07 | External Medical Summary | Summary of Care ---
Author Name Unknown Organization [facility] Address [address] [place] [address] Phone [phone] Care Team Providers Care Housemaid Name Role Phone Sushil Valladares DO Primary Care Provider Reason for Visit * Reason Comments Outpatient Testing Encounter Details Date Type Department Care Team (Late st Contact Info) Description 05/31/2024 12:20 PM [facility] Laboratory Laboratory, [place] [address] [place] [address] [facility] [address] [place] [address] Malaise and fatigue; Other specified diabetes mellitus with other skin ulcer (CODE) ([facility]); Type 2 diabetes mellitus with foot ulcer, without long-term current use of insulin ([facility]); Other continuous churn buttermaker (current) drug therapy; Vitamin D deficiency, unspecified [...] Nasal Solution (Astelin)Indicatio ns:Chronic rhinitis Administer 1 [place] into nostril in the morning and 1 [place] before bedtime. 30 mL 8 4 Active Ozempic (2 MG/DOSE) 8 MG/3ML Subcutaneous Solution Pen-injector (Semaglutide (2 MG/DOSE))Indicatio ns:Type 2 diabetes mellitus with hemoglobin A1c goal of less than 7.0% ([facility]) INJECT 2 MG UNDER THE SKIN ONCE WEEKLY 9 mL 1 4 Active Losartan Potassium 50 MG Oral Tablet (Cozaar)Indication s:Type 2 diabetes mellitus with foot ulcer, without long-term current use of insulin ([facility]) Take 1 Tablet by mouth at bedtime. 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 file Not on file Not on file documented as of this encounter Miscellaneous Notes * Addendum Note - Sushil Valladares DO - 06/03/2024 8:03 AM ESTAddended by: SUSHIL VALLADARES on: 06/03/2024 08:03 AM Modules accepted: Orders documented in this encounter Plan of Treatment Upcoming Encounters Date Type Department Care Team (Late st Contact Info) Description 06/07/2024 8:20 AM EST Office Visit Optometry, [facility] [address] [place] [address] Geoffrey Shoemaker [address] [facility] [address] 11/29/2024 2:40 PM EDT Office Visit [facility] [address] [facility] Entrance B, 2nd Floor, [address] [place] [address] Trini Perales DO [address] [place] [address] Scheduled Orders Name Type Priority Associated Diagnoses Orde r Schedule TSH WITH FREE T4 IF INDICATED Lab Routine Malaise and fatigue Expected: 07/03/2024 (Approximate), Expires: 06/03/2025 25-HYDROXY VITAMIN D Lab Routine Vitamin D deficiency, unspecified Expected: 07/03/2024 (Approximate), Expires: 06/03/2025 Health Maintenance Due Date Last Done Comments [...] Procedure Name Priority Date/Time Associated Diagnosis Comments LYME DISEASE ANTIBODY SCREEN Routine 05/31/2024 12:11 PM EST Malaise and fatigue DIFFERENTIAL, AUTOMATED Routine 05/31/2024 12:11 PM EST Malaise and fatigue TSH WITH FREE T4 IF INDICATED Routine 05/31/2024 12:11 PM EST Malaise and fatigue LYME DISEASE ANTIBODY SCREEN WITH REFLEX TO CONFIRMATION Routine 05/31/2024 12:11 PM EST Malaise and fatigue 25-HYDROXY VITAMIN D Routine 05/31/2024 12:11 PM EST Malaise and fatigue Vitamin D deficiency, unspecified BASIC METABOLIC PANEL Routine 05/31/2024 12:11 PM EST Malaise and fatigue IRON SCREEN, INCLUDING TIBC Routine 05/31/2024 12:11 PM EST Malaise and fatigue CBC Routine 05/31/2024 12:11 PM EST Malaise and fatigue CBC Routine 05/31/2024 12:11 PM EST Malaise and fatigue T4, FREE Routine 05/31/2024 12:11 PM EST Malaise and fatigue FERRITIN Routine 05/31/2024 12:11 PM EST Malaise and fatigue Other specified diabetes mellitus with other skin ulcer (CODE) (HCC) VITAMIN B12 Routine 05/31/2024 12:11 PM EST Type 2 diabetes mellitus with foot ulcer, without long-term current use of insulin (HCC) Malaise and fatigue Other detention (current) drug therapy documented in this encounter Results * T4, FREE (05/31/2024 12:11 PM EST) T4, Free 1.0 0.9 - 1.7 ng/dL 05/31/2024 5:36 PM EST [facility] Blood Venous blood specimen / Unknown Venipuncture / Unknown 05/31/2024 12:11 PM EST 05/31/2024 12:11 PM EST [facility] BLOOD ORDERABLES Fi nal Result Performing Organization Address City/[facility]/ZIP Co de Phone Number LABORATORY [facility] [address] [place] [address] * LYME DISEASE ANTIBODY SCREEN (05/31/2024 12:11 PM EST) [facility] Lyme Disease Antibody Screen Negative Negative 06/02/2024 12:12 PM EST [facility] Blood Venous blood specimen / Unknown Venipuncture / Unknown 05/31/2024 12:11 PM EST 05/31/2024 12:11 PM EST [facility] BLOOD ORDERABLES Fi nal Result Performing Organization Address [facility] Co de Phone Number LABORATORY [facility] [address] [place] [address] * (ABNORMAL) DIFFERENTIAL, AUTOMATED (05/31/2024 12:11 PM EST) [facility] WBC 8.48 4.00 - 10.80 K/uL 05/31/2024 4:15 PM EST [facility] Neutrophils % 72.5 40.0 - 75.0 % 05/31/2024 4:15 PM EST [facility] Lymphocytes % 13.7(L) 18.0 - 42.0 % 05/31/2024 4:15 PM EST [facility] Monocytes % 9.3 1.0 - 11.0 % 05/31/2024 4:15 PM EST [facility] Eosinophils % 3.4 0.0 - 6.0 % 05/31/2024 4:15 PM EST [facility] Basophils % 0.5 0.0 - 2.0 % 05/31/2024 4:15 PM EST [facility] Immature Granulocytes % 0.6 0.0 - 2.0 % 05/31/2024 4:15 PM EST [facility] Absolute Neutrophils 6.15 1.80 - 7.70 K/uL 05/31/2024 4:15 PM EST [facility] Absolute Lymphocytes 1.16 1.00 - 4.80 K/ul 05/31/2024 4:15 PM EST [facility] Absolute Monocytes 0.79 0.00 - 1.10 K/uL 05/31/2024 4:15 PM EST [facility] Absolute Eosinophils 0.29 0.00 - 0.70 K/uL 05/31/2024 4:15 PM EST [facility] Absolute Basophils 0.04 0.00 - 0.20 K/uL 05/31/2024 4:15 PM EST [facility] Absolute Immature Granulocytes 0.05 0.00 - 0.20 K/uL 05/31/2024 4:15 PM EST [facility] Blood Venous blood specimen / Unknown Venipuncture / Unknown 05/31/2024 12:11 PM EST 05/31/2024 12:11 PM EST us Sushil Valladarse DO LAB BLOOD ORDERABLES Fi nal Result [facility] [address] [place] [address] * CBC (05/31/2024 12:11 PM EST) WBC 8.48 4.00 - 10.80 K/uL 05/31/2024 4:15 PM EST [facility] RBC 5.54 4.50 - 5.25 M/uL 05/31/2024 4:15 PM EST [facility] HGB 15.0 14.0 - 16.8 g/dL 05/31/2024 4:15 PM EST [facility] HCT 46.3 40.0 - 48.4 % 05/31/2024 4:15 PM EST [facility] MCV 83.6 82.0 - 99.5 fL 05/31/2024 4:15 PM EST [facility] MCH 27.1 27.0 - 34.0 pg 05/31/2024 4:15 PM EST [facility] MCHC 32.4 32.0 - 36.0 g/dL 05/31/2024 4:15 PM EST [facility] RDW 13.7 11.5 - 15.5 % 05/31/2024 4:15 PM EST LABORATORY [facility] PLT 224 140 - 400 K/uL 05/31/2024 4:15 PM EST LABORATORY [facility] MPV 10.6 6.6 - 11.1 fL 05/31/2024 4:15 PM EST LABORATORY [facility] nRBCs 0 <=0 /100 WBCs 05/31/2024 4:15 PM EST LABORATORY [facility] Blood Venous blood specimen / Unknown Venipuncture / Unknown 05/31/2024 12:11 PM EST 05/31/2024 12:11 PM EST Sushil Valladares DO LAB BLOOD ORDERABLES Fi nal Result Performing Organization Address [facility]/ZIP Co de Phone Number LABORATORY [place] [address] [place] [address] * 25-HYDROXY VITAMIN D (05/31/2024 12:11 PM EST) 25-Hydroxy Vitamin D 20 >19 ng/mL 05/31/2024 4:54 PM EST LABORATORY [facility] Blood Venous blood specimen / Unknown Venipuncture / Unknown 05/31/2024 12:11 PM EST 05/31/2024 12:11 PM EST Narrative LABORATORY [facility] - 05/31/2024 4:54 PM EST Deficient: <20 ng/mL Insufficient: 20-29 ng/mL Recommended/Optimum:30-50 ng/mL Vitamin D intoxication is rare. If suspicious of Vitamin D toxicity, evaluation of serum Calcium and PTH is recommended. Sushil Valladares DO LAB BLOOD ORDERABLES Fi nal Result LABORATORY [place] [address] [place] [address] * VITAMIN B12 (05/31/2024 12:11 PM EST) Vitamin B12 939 232 - 1,245 pg/mL 05/31/2024 4:54 PM EST LABORATORY [facility] Blood Venous blood specimen / Unknown Venipuncture / Unknown 05/31/2024 12:11 PM EST 05/31/2024 12:11 PM EST Sushil Valladares DO LAB BLOOD ORDERABLES Fi nal Result Performing Organization Address City/[facility]/ZIP Co de Phone Number LABORATORY [facility] [address] [place] [address] * FERRITIN (05/31/2024 12:11 PM EST) Ferritin 71 30 - 400 ng/mL 05/31/2024 4:54 PM EST LABORATORY [facility] Comment:The above reference range is based on the legal sex of the patient only. Results should be interpreted together with patient's sex at , gender identity, and clinical context. Blood Venous blood specimen / Unknown Venipuncture / Unknown 05/31/2024 12:11 PM EST 05/31/2024 12:11 PM EST Sushil Valladares DO LAB BLOOD ORDERABLES Fi nal Result Performing Organization Address [facility] de Phone Number LABORATORY [facility] [address] [place] [address] * IRON SCREEN, INCLUDING TIBC (05/31/2024 12:11 PM EST) Pathologist [facility] Iron 55 45 - 176 ug/dL 05/31/2024 4:18 PM EST LABORATORY C Iron Binding Capacity 269 250 - 425 ug/dL 05/31/2024 4:18 PM EST LABORATORY C Transferrin Saturation Percent 20 15 - 55 % 05/31/2024 4:18 PM EST LABORATORY [facility] Blood Venous blood specimen / Unknown Venipuncture / Unknown 05/31/2024 12:11 PM EST 05/31/2024 12:11 PM EST Sushil Valladares LAB BLOOD ORDERABLES Fi nal Result Performing Organization Address City/[facility]/ZIP Co de Phone Number LABORATORY [facility] [address] [place] [address] * (ABNORMAL) BASIC METABOLIC PANEL (05/31/2024 12:11 PM EST) BUN 23(H) 6 - 20 mg/dL 05/31/2024 4:18 PM EST [facility] CREATININE 1.2 0.6 - 1.2 mg/dL 05/31/2024 4:18 PM EST [facility] Comment:The above reference range is based on the legal sex of the patient only. Results should be interpreted together with patient's sex at , gender identity, and clinical context. EGFR 80 >=60 mL/min 05/31/2024 4:18 PM EST LABORATORY [facility] Comment:eGFR is calculated b ased on the legal sex of the patient, using the CKD- EPI 2020 equation. SODIUM 138 135 - 146 mmol/L 05/31/2024 4:18 PM EST [facility] POTASSIUM 4.7 3.5 - 5.1 mmol/L 05/31/2024 4:18 PM EST [facility] CHLORIDE 99 98 - 107 mmol/L 05/31/2024 4:18 PM EST LABORATORY C CO2 29 22 - 32 mmol/L 05/31/2024 4:18 PM EST LABORATORY C ANION GAP 10 7 - 15 mmol/L 05/31/2024 4:18 PM EST [facility] GLUCOSE 84 70 - 120 mg/dL 05/31/2024 4:18 PM EST LABORATORY C CALCIUM 10.2 8.4 - 10.2 mg/dL 05/31/2024 4:18 PM EST LABORATORY [facility] Blood Venous blood specimen / Unknown Venipuncture / Unknown 05/31/2024 12:11 PM EST 05/31/2024 12:11 PM EST us Sushil Valladares DO LAB BLOOD ORDERABLES Fi nal Result LABORATORY [facility] [address] [place] [address] * (ABNORMAL) TSH WITH FREE T4 IF INDICATED (05/31/2024 12:11 PM EST) TSH 4.76(H) 0.27 - 4.20 uIU/mL 05/31/2024 4:54 PM EST LABORATORY [facility] Blood Venous blood specimen / Unknown Venipuncture / Unknown 05/31/2024 12:11 PM EST 05/31/2024 12:11 PM EST Sushil Valladares DO LAB BLOOD ORDERABLES Fi nal Result LABORATORY [facility] [address] [place] [address] documented in this encounter Visit Diagnoses Diagnosis Malaise and fatigue Other malaise and fatigue Other specified diabetes mellitus with other skin ulcer (CODE) (HCC) Type 2 diabetes mellitus with foot ulcer, without long-term current use of insulin (HCC) Other detention (current) drug therapy Vitamin D deficiency, unspecified documented in this encounter Advance Directives * Full Code (Latest Code Status on File) Date Activated Date Inactivated Comments 02/03/2022 12:26 PM 02/03/2022 7:04 PM This order reflects the patients wishes and were consensually agreed upon. * Full Code Date Activated Date Inactivated Comments 06/01/2007 9:34 AM 06/01/2007 4:23 PM Care Teams Housemaid Relationship Specialty Start Date End Date Sushil Valladares DO [address] [place] [id number] PCP - General Internal Medicine 05/01/23 documented as of this encounter
--- OUTSIDE RECORDS SUMMARY | 2024-06-20 15:07 | External Medical Summary | Summary of Care ---
Author Name Unknown Organization [facility] Address [address] [place] [address] Phone [phone] Care Team Providers Care Risk Intern Name Role Phone Mago Valladares DO Primary Care Provider Reason for Visit * Reason Comments Routine Exam Routine appointment: - Needs new prescription for diabetic shoes. Ran out of Losartan Potassium 2 weeks ago (new order pended) pre-op exam Knee surgery 024. Encounter Details Date Type Department Care Team (Late st Contact Info) Description 05/31/2024 12:00 PM EST Office Visit [facility] [address] [facility] Entrance B, 2nd Floor, [address] [place] [address] Mago Valladares DO [address] [place] [address] Preoperative general physical examination*; Diabetic ulcer of left great toe (HCC); Type 2 diabetes mellitus with hemoglobin A1c goal of less than 7.0% ([facility]); ROME (obstructive sleep apnea); Dyslipidemia, goal LDL below 100; Type 2 diabetes mellitus with foot ulcer, without long-term current use of insulin ([facility]); ROME on CPAP; Malaise and fatigue; Other specified diabetes mellitus with other skin ulcer (CODE) ([facility]); Other watermelon inspector (current) drug therapy; Vitamin D deficiency, unspecified [...] Nasal Solution (Astelin)Indicatio ns:Chronic rhinitis Administer 1 [place] into nostril in the morning and 1 [place] before bedtime. 30 mL 8 12/05/19 24 [...] (Menommune) 02/09/2000 Pneumococcal Conjugate Vacci ne, 20-valent ([id number]) 05/03/2022 Pneumococcal Polysaccharide PPV23 (Pneumovax) 12/12/2018,05/16/2016 Seasonal [...] No 05/17/2024 Does the household have a [facility] source of income? 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 whom he follows with an they [...] which they are following with Podiatry at [facility] Has required multiple debridements Wearing good [...] on Zoloft, Abilify. Following with psychiatry at [facility] Ava Teague ROME Wearing CPAP nightly [...] Plan is for left knee replacement with [facility] Dr. Muniz on 06/19/2024. Having [...] supplements for 10days prior to procedure, no tidw-sei-wqnbytz NSAIDs for 1 week prior to procedure, hold metformin and losartan on morning of surgery, Ozempic for 1 week prior to procedure Diabetic ulcer of left great toe (HCC) Type 2 diabetes mellitus with hemoglobin A1c goal of less than 7.0% ([facility]) ROME (obstructive sleep apnea) Dyslipidemia, goal LDL below 100 Type 2 diabetes mellitus with foot ulcer, without long-term current use of insulin ([facility]) - ALBUMIN / CREATININE RATIO, URINE; Future; [...] - FERRITIN; Future; Expected date: 05/31/2024 Other watermelon inspector (current) drug therapy - VITAMIN B12; Future; [...] performance ofseparately billed services. Mago Valladares DO [address], [address] Floor, [address] [place] [address] * Vee Garcia LPN - 05/31/2024 11:26 [...] 06/07/2024 8:20 AM EST Office Visit Optometry, [facility] [address] [place] [address] Geoffrey Shoemaker, OD [address] [place] [address] 11/29/2024 2:40 PM EDT Office Visit [facility] [place] [address] [facility] Entrance B, 2nd Floor, [address] [place], [place] [id number] Trini Perales DO [address] [place] [id number] Pending Results Name Type Priority Associated Diagnoses [...] mellitus with other skin ulcer (CODE) (HCC) 05/31/2024 12:11 PM EST VITAMIN B12 Lab Routine Type 2 diabetes mellitus with foot ulcer, without long-term current use of insulin (HCC) Malaise and fatigue Other watermelon inspector (current) drug therapy 05/31/2024 12:11 PM EST [...] of insulin (HCC) Malaise and fatigue Other watermelon inspector (current) drug therapy Expected: 05/31/2024 (Approximate), Expires: [...] 04/11/2023, 03/22/2023, Additional history exists Albumin/Creatinine Ratio 06/26/202406/26/2 023, 05/05/2023, 04/26/2022, Additional history exists Diabetic Foot Exam 10/23/2024 10/24/2023, 0 08/04/2022 (Done elsewhere) HbA1c 11/10/2024 05/13/2024, 060 12/2023, 11/17/2023, Additional history exists GFR 05/23/2025 05/23/2024, 10/2023, 05/13/2024, Additional history exists Depression Monitoring [...] with other skin ulcer (CODE) (HCC) Other watermelon inspector (current) drug therapy Vitamin D deficiency, unspecified documented in this encounter Advance Directives * Full Code (Latest Code Status on File) Date Activated Date Inactivated Comments 02/03/2022 12:26 PM 02/03/2022 7:04 PM This order reflects the patients wishes and were consensually agreed upon. * Full Code Date Activated Date Inactivated Comments 06/01/2007 9:34 AM 06/01/2007 4:23 PM Care Teams Risk Intern Relationship Specialty Start Date End Date Mago Valladares DO [address] [place] [address] [place] [address] PCP - General Internal Medicine 05/01/23 documented as of this encounter
--- OUTSIDE RECORDS SUMMARY | 2024-06-20 15:08 | External Medical Summary ---
Author Name Unknown Address Unknown Organization [id number]:LAB[facility]ATORY [facility] [address] [facility] [address] Laboratory Report Ordering Provider Test Date Status ORIANA LING 05/31/2024 12:11:12 Final Observation Date Value Abnormality Reference (Units ) Status SYNC LEUKOCYTES IN BLOOD BY AUTOMATED COUNT 05/31/2024 12:11:12 8.48 4.00-10.80 (K/uL) Final Segs 05/31/2024 12:11:12 72.5 40.0-75.0 (%) Final Lymphs % 05/31/2024 12:11:12 13.7 Below low normal 18.0-42.0 (%) Final Monos 05/31/2024 12:11:12 9.3 1.0-11.0 (%) Final Eosinophils 05/31/2024 12:11:12 3.4 0.0-6.0 (%) Final Basos 05/31/2024 12:11:12 0.5 0.0-2.0 (%) Final Immature Granulocyte, Percent 05/31/2024 12:11:12 0.6 0.0-2.0 (%) Final Absolute Segs 05/31/2024 12:11:12 6.15 1.80-7.70 (K/uL) Final Lymphs, absolute 05/31/2024 12:11:12 1.16 1.00-4.80 (K/ul) Final Monos, Abs 05/31/2024 12:11:12 0.79 0.00-1.10 (K/uL) Final Eos, Abs 05/31/2024 12:11:12 0.29 0.00-0.70 (K/uL) Final Basos, Abs 05/31/2024 12:11:12 0.04 0.00-0.20 (K/uL) Final Immature Granulocytes, Number 05/31/2024 12:11:12 0.05 0.00-0.20 (K/uL) Final Performing Location LAB[facility]ORY [facility] [address] [facility] [address]
--- OUTSIDE RECORDS SUMMARY | 2024-06-20 15:08 | External Medical Summary ---
Author Name Unknown Address Unknown Organization K01:[facility] [address] [facility] [address] [facility] [address] Laboratory Report Ordering Provider Test Date Status SUSHILJENNIFERSUNDAY 05/31/2024 12:11:12 Final Observation Date Value Abnormality Reference (Units ) Status WBC, Total 05/31/2024 12:11:12 8.48 4.00-10.80 (K/uL) Final RBC 05/31/2024 12:11:12 5.54 4.50-5.25 (M/uL) Final Hemoglobin 05/31/2024 12:11:12 15.0 14.0-16.8 (g/dL) Final HCT 05/31/2024 12:11:12 46.3 40.0-48.4 (%) Final MCV 05/31/2024 12:11:12 83.6 82.0-99.5 (fL) Final MCH 05/31/2024 12:11:12 27.1 27.0-34.0 (pg) Final MCHC 05/31/2024 12:11:12 32.4 32.0-36.0 (g/dL) Final RDW 05/31/2024 12:11:12 13.7 11.5-15.5 (%) Final Platelets 05/31/2024 12:11:12 224 140-400 (K/uL) Final MPV 05/31/2024 12:11:12 10.6 6.6-11.1 (fL) Final Nucleated erythrocytes/100 leukocytes [Ratio] in Blood by Automated count 05/31/2024 12:11:12 0 <=0 (/100 WBCs) Final Performing Location LAB[facility]ORY [facility] [address] [facility] [address] [facility] [address]
--- OUTSIDE RECORDS SUMMARY | 2024-06-20 15:08 | External Medical Summary | Summary of Care ---
Author Name Unknown Organization [facility] Address [address] [place] [address] Phone [phone] Care Team Providers Care Power Driven Brush Maker Name Role Phone Mago Valladares DO Primary Care Provider Encounter Details Date Type Department Care Team (Late st Contact Info) Description 05/27/2024 Orders Only [facility], [place] [address] [facility] [address], 2nd Floor, [address] [place], [place] [id number] Mago Valladares DO [address] [place] [address] Allergies Active Allergy Reactions Criticality Noted Date Comments Dust 03/06/2023 Dust Mite Extract 03/17/2016 Lisinopril 02/12/2019 Angioedema in the father Pollen 08/18/2015 documented as of this encounter (statuses as of 05/27/2024) Medications ZOLOFT 100 MG PO TABS Take [...] Apply to affected area once daily Active Losartan Potassium 50 MG Oral Tablet (Cozaar)Indication s:Type 2 diabetes mellitus with foot ulcer, without long-term current use of insulin (HCC) TAKE 1 TABLET BY MOUTH AT BEDTIME 90 Tablet 3 3 Active Insulin Aspart 100 UNIT/ML Subcutaneous Solution [...] Nasal Solution (Astelin)Indicatio ns:Chronic rhinitis Administer 1 [place] into nostril in the morning and 1 [place] before bedtime. 30 mL 8 4 Active Ozempic (2 MG/DOSE) 8 MG/3ML Subcutaneous Solution Pen-injector (Semaglutide (2 MG/DOSE))Indicatio ns:Type 2 diabetes mellitus with hemoglobin A1c goal of less than 7.0% (HCC) INJECT 2 MG UNDER THE SKIN ONCE WEEKLY 9 mL 1 4 Active documented as of this encounter (statuses as of 05/27/2024) Active Problems Problem Noted Date Diagnosed Date History of atrial fibrillation 11/24/2023 Dyslipidemia, goal [...] as of this encounter (statuses as of 05/27/2024) Resolved Problems Problem Noted Date Diagnosed Date [...] as of this encounter (statuses as of 05/27/2024) Immunizations Name Administration Dates Next Due COVID-19 [...] ([place]) 02/09/2000 Pneumococcal Conjugate Vacci ne, 20-valent ([id number]) 05/03/2022 Pneumococcal Polysaccharide PPV23 (Pneumovax) 12/12/2018,05/16/2016 Seasonal [...] Answer Date Recorded PHQ Adult Total Score 0 05/26/2023 Hunger Vital Sign Answer Date Recorded Within [...] 05/17/2024 Does the household have a re lar source of income? 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 Not on file Not on file Not on file documented as of this encounter Plan of Treatment Upcoming Encounters Date Type Department Care Team (Late st Contact Info) Description 05/31/2024 12:00 PM EST Office Visit Family [facility], [place] [address], [address] Floor, [address] [place] [address] Mago Valladares, DO [address] [place] [address] 06/07/2024 8:20 AM EST Office Visit Optometry, [facility] [address] [place] [address] Geoffrey Shoemaker, OD [address] [facility] [place] [address] Health Maintenance Due Date Last Done Comments Cologuard 09/24/2023 Fecal Occult Blood Test 09/24/2023 Sigmoidoscopy 09/24/2023 HPV (Gardasil) Vaccine (2 - 3-dose SCDM series) 11/24/2023 10/27/2023 Diabetic Eye Exam 05/01/2024 05/01/2023, , 05/01/2023, Additional history exists Depression Monitoring 05/26/2024 05/26/2023 HbA1c 06/14/2024 12/14/2023, 05, 05/05/2023, Additional history exists COVID-19 Vaccine ( season) 2024 04/23/2024, 04/11/2023, 03/22/2023, Additional history exists Albumin/Creatinine Ratio 06/26/202406/26/2 023, 05/05/2023, 04/26/2022, Additional history exists Diabetic Foot Exam 10/23/2024 10/24/2023, 0 08/04/2022 (Done elsewhere) GFR 12/13/2024 05/23/2024, 06/0 12/2023, 11/17/2023, Additional history exists DTap/Tdap Vaccines (3 - [...] Procedure Name Priority Date/Time Associated Diagnosis Comments XR CHEST 2 VIEWS Routine 05/23/2024 CHEMISTRY-OUTSIDE Routine 05/23/2024 documented in this encounter Results * (ABNORMAL) CHEMISTRY-OUTSIDE (05/23/2024) Not all results display below - see scan for full detail OUTSIDE LAB (SEE SCANNED REPORT) Comment:SEE SCAN: CBCD, PT, INR, PTT, BMP, UA CREATININE 1.03 0.6 - 1.4 MG/DL OUTSIDE LAB (SEE SCANNED REPORT) EGFR 91.29 OUTSIDE LA B (SEE SCANNED REPORT) POTASSIUM 4.1 3.5 - 5.1 MMOL/L OUTSIDE LAB (SEE SCANNED REPORT) GLUCOSE 95 70 - 99 MG/DL OUTSIDE LAB (SEE SCANNED REPORT) HOURS FASTING OUTSID E LAB (SEE SCANNED REPORT) TRIGLYCERIDES-OUT SIDE LAB OUTSIDE LAB (SEE SCANNED REPORT) CHOLESTEROL-OUTSI DE LAB OUTSIDE LAB (SEE SCANNED REPORT) HDL-OUTSIDE LAB OUTS [facility] (SEE SCANNED REPORT) CHOL/HDL RATIO-OUTSIDE LAB OUTSIDE LA B (SEE SCANNED REPORT) LDL (CALCULATED)-OUTS [facility] OUTSIDE LAB (SEE SCANNED REPORT) LDL (DIRECT MEASURE)-OUTSIDE LAB OUTSIDE LAB (SEE SCANNED REPORT) HEMOGLOBIN, [id number] LAB OUTSIDE LAB (SEE SCANNED REPORT) PHOSPHORUS-OUTSID E LAB OUTSIDE LAB (SEE SCANNED REPORT) PTH-OUTSIDE LAB OUTS [facility] (SEE SCANNED REPORT) MICROALBUMIN RATIO-OUTSIDE LAB OUTSIDE LA B (SEE SCANNED REPORT) PROTEIN, UA-OUTSIDE LAB 1+(A) NEG OUTSIDE LAB (SEE SCANNED REPORT) HGB 14.3 14.0 - 18.0 G/DL OUTSIDE LAB (SEE SCANNED REPORT) 05/23/2024 us History Per Patient LABORATORY Final Result OUTSIDE LAB (SEE SCANNED REPORT) * XR CHEST 2 VIEWS (05/23/2024) Anatomical Region Laterality Modality Chest Other 05/23/2024 us George Muniz MD RADIOLOGY (RAD GEN ERAL) Final Result documented in this encounter Advance Directives * Full Code (Latest Code Status on File) Date Activated Date Inactivated Comments 02/03/2022 12:26 PM 02/03/2022 7:04 PM This order reflects the patients wishes and were consensually agreed upon. * Full Code Date Activated Date Inactivated Comments 06/01/2007 9:34 AM 06/01/2007 4:23 PM Care Teams Power Driven Brush Maker Relationship Specialty Start Date End Date Mago Valladares DO [address] [place] [address] [place] [address] PCP - General Internal Medicine 05/01/23 documented as of this encounter
--- OUTSIDE RECORDS SUMMARY | 2024-06-20 15:08 | External Medical Summary ---
Author Name Unknown Address Unknown Organization [id number]:LABORATORY [facility] – [place] - [address] [place] [address] Laboratory Report Ordering Provider Test Date Status ORIANA LING 05/31/2024 12:11:12 Final Deficient: <20 ng/mL
Ins ufficient: 20-29 ng/mL
Recommended/Optimum:30-50 ng/mL

Vitamin D intoxication is rare. If suspicious of Vitamin D toxicity, evaluation of serum Calcium and PTH is recommended. Observation Date Value Abnormality Reference (Units ) Status 25-OH Vitamin D total 05/31/2024 12:11:12 20 >19 (ng/mL) Final Performing Location LABORATORY [facility] [place] - [address] [place] [address]
--- OUTSIDE RECORDS SUMMARY | 2024-06-20 15:08 | External Medical Summary ---
Author Name Unknown Address Unknown Organization [id number]:LABORATORY [facility] – [place] - [address] [facility] [place] [address] Laboratory Report Ordering Provider Test Date Status ORIANA LING 05/31/2024 12:11:12 Final Observation Date Value Abnormality Reference (Units ) Status Ferritin 05/31/2024 12:11:12 71 30-400 (ng /mL) Final The above reference range is based on the legal sex of the patient only. Results should be interpreted together with patient's sex at , gender identity, and clinical context. Performing Location LABORATORY [facility] - [address] [place] [address]
--- OUTSIDE RECORDS SUMMARY | 2024-06-20 15:08 | External Medical Summary ---
Author Name Unknown Address Unknown Organization [id number]:[facility]ORY [facility] [place] - [address] [place] [address] [place] [address] Laboratory Report Ordering Provider Test Date Status ORIANA LING 05/31/2024 12:11:12 Final Observation Date Value Abnormality Reference (Units ) Status BUN 05/31/2024 12:11:12 23 Above high normal 6- 20 (mg/dL) Final Creatinine 05/31/2024 12:11:12 1.2 0.6-1.2 ( mg/dL) Final The above reference range is based on the legal sex of the patient only. Results should be interpreted together with patient's sex at , gender identity, and clinical context. Glomerular filtration rate/1 .73 sq M.predicted [Volume Rate/Area] in Serum, Plasma or Blood by Creatinine-based formula (CKD-EPI) 05/31/2024 12:11:12 80 >=60 (mL/min) Fi nal eGFR is calculated based on the legal sex of the patient, using the CKD-EPI 2020 equation. Sodium 05/31/2024 12:11:12 138 135-146 (m mol/L) Final Potassium 05/31/2024 12:11:12 4.7 3.5-5.1 (m mol/L) Final Cl 05/31/2024 12:11:12 99 98-107 (mm ol/L) Final CO2 05/31/2024 12:11:12 29 22-32 (mmo l/L) Final Anion gap 05/31/2024 12:11:12 10 7-15 (mmol /L) Final Glucose 05/31/2024 12:11:12 84 70-120 (mg /dL) Final Calcium 05/31/2024 12:11:12 10.2 8.4-10.2 ( mg/dL) Final Performing Location LAB[facility]ATORY [facility] [place] - [address] [place] [address]
--- OUTSIDE RECORDS SUMMARY | 2024-06-20 15:08 | External Medical Summary ---
Author Name Unknown Address Unknown Organization [id number]:[facility] [place] [address] [place] [address] [place] [address] Laboratory Report Ordering Provider Test Date Status ORIANA LING 05/31/2024 12:11:12 Final Observation Date Value Abnormality Reference (Units ) Status TSH 05/31/2024 12:11:12 4.76 Above high normal 0. 27-4.20 (uIU/mL) Final Performing Location [place] [facility] [place] [address] [place] [address]
--- OUTSIDE RECORDS SUMMARY | 2024-06-20 15:08 | External Medical Summary ---
Author Name Unknown Address Unknown Organization [id number]:LABORATORY [facility] – [place] - [facility] [place] [address] Laboratory Report Ordering Provider Test Date Status ORIANA LING 05/31/2024 12:11:12 Final Observation Date Value Abnormality Reference (Units ) Status Borrelia burgdorferi IgG and IgM [Interpretation] in Serum by Immunoassay 05/31/2024 12:11:12 Negative Negative Final Performing Location LABORATORY [facility] – [place] - [facility] [place] [address]
--- OUTSIDE RECORDS SUMMARY | 2024-06-20 15:08 | External Medical Summary ---
Author Name Unknown Address Unknown Organization [id number]:[facility]ORY [facility] [place] [address] [place] [address] Laboratory Report Ordering Provider Test Date Status ORIANA LING 05/31/2024 12:11:12 Final Observation Date Value Abnormality Reference (Units ) Status Iron 05/31/2024 12:11:12 55 45-176 (ug /dL) Final Iron-binding capacity 05/31/2024 12:11:12 269 250-425 (ug/dL) Final Transferrin Sat % 05/31/2024 12:11:12 20 15 -55 (%) Final Performing Location LAB[facility] [place] [address] [place] [address]
== END 2024-06-20 11:45 | disposition home health service (06) ==
LOC: ASU 06:16 → PACUINP 06:16 → 3E 14:08